=== PATIENT | male | born 1960 | race African-American/Black ===

== ENCOUNTER 2017-05-08 19:25 | Emergency (ER) | payer MEDICAID ==
[~2017-05-08] VITALS: Ht 165.1 cm; Wt 77.0 kg
[2017-05-09] MEDS ORDERED: IBUPROFEN 600MG TABLET PO NR (01:00)
[2017-05-09 01:13] LABS: CLARITY URINE CLEAR (CLEAR); COLOR URINE YELLOW (YELLOW); GLUCOSE URINE NEGATIVE (NEGATIVE); KETONES URINE TRACE (NEGATIVE); LEUKOCYTE ESTERASE URINE NEGATIVE (NEGATIVE); NITRITE URINE NEGATIVE (NEGATIVE); OCCULT BLOOD URINE NEGATIVE (NEGATIVE); PROTEIN URINE NEGATIVE (NEGATIVE)
[2017-05-09 05:45] VITALS: BP 137/90
== END 2017-05-09 05:48 | disposition home or self-care (01) ==
LOC: ER 05-09 02:22
DX: S39.012A Strain of muscle, fascia and tendon of lower back, initial encounter (principal); I10 Essential (primary) hypertension; E78.00 Pure hypercholesterolemia, unspecified; F17.200 Nicotine dependence, unspecified, uncomplicated; X58.XXXA Exposure to other specified factors, initial encounter; Y93.89 Activity, other specified; Y92.89 Other specified places as the place of occurrence of the external cause; Y99.8 Other external cause status
CPT/HCPCS: 72100; 81003; 99285; Z7610

== ENCOUNTER 2018-10-06 19:48 | Emergency (ER) | payer MEDICAID ==
[~2018-10-06] VITALS: Ht 165.1 cm; Wt 80.0 kg
[2018-10-06] MEDS: TRAMADOL 50MG TABLET PO ONE (23:13)
[2018-10-07 00:29] VITALS: BP 135/89
== END 2018-10-07 00:33 | disposition home or self-care (01) ==
LOC: ER 22:32
DX: M54.5 Low back pain (principal); F17.200 Nicotine dependence, unspecified, uncomplicated; F41.9 Anxiety disorder, unspecified; I10 Essential (primary) hypertension; E78.00 Pure hypercholesterolemia, unspecified; Z98.890 Other specified postprocedural states
CPT/HCPCS: 72100; 99283

== ENCOUNTER 2018-10-11 02:37 | Emergency (ER) | payer MEDICAID ==
[~2018-10-11] VITALS: Ht 165.1 cm; Wt 85.0 kg
[2018-10-11] MEDS ORDERED: IBUPROFEN 800MG TABLET PO ONE (06:45)
[2018-10-11] MEDS ORDERED: CLONIDINE 0.1MG TABLET PO ONE (06:45)
[2018-10-11 09:38] VITALS: BP 137/84
== END 2018-10-11 09:50 | disposition home or self-care (01) ==
LOC: ER 02:37
DX: M54.5 Low back pain (principal); I10 Essential (primary) hypertension; F12.10 Cannabis abuse, uncomplicated
CPT/HCPCS: 99283; Z7610

== ENCOUNTER 2018-10-26 01:21 | Emergency (ER) | payer MEDICAID ==
[~2018-10-26] VITALS: Ht 165.1 cm; Wt 83.0 kg
[2018-10-26] MEDS ORDERED: KETOROLAC 60MG/2ML VIAL IM ONE (07:15)
[2018-10-26 10:28] VITALS: BP 139/83
== END 2018-10-26 10:31 | disposition home or self-care (01) ==
LOC: ER 01:21
DX: J02.9 Acute pharyngitis, unspecified (principal); G89.29 Other chronic pain; M54.5 Low back pain
CPT/HCPCS: 87070; 87430; 96372; 99283; J1885

== ENCOUNTER 2020-09-14 01:13 | Emergency (ER) | payer MEDICAID ==
[~2020-09-14] VITALS: Ht 167.6 cm; Wt 86.0 kg
[2020-09-14] MEDS ORDERED: FUROSEMIDE 40MG TABLET PO ONE (02:15)
[2020-09-14 02:21] VITALS: BP 139/99
== END 2020-09-14 02:22 | disposition home or self-care (01) ==
LOC: ER 01:13
DX: I11.0 Hypertensive heart disease with heart failure (principal); I50.9 Heart failure, unspecified; F12.10 Cannabis abuse, uncomplicated; R60.0 Localized edema; Z76.0 Encounter for issue of repeat prescription
CPT/HCPCS: 99283

== ENCOUNTER 2020-11-23 23:09 | Emergency (ER) | payer MEDICAID ==
[~2020-11-23] VITALS: Ht 165.1 cm; Wt 77.0 kg
[2020-11-24] MEDS ORDERED: FUROSEMIDE 40MG/4ML VIAL IV ONE
[2020-11-24] MEDS ORDERED: ASPIRIN 81MG TABLET PO ONE
[2020-11-24 00:17] LABS: HEMATOCRIT. 45.3 % (42.0-52.0); HEMOGLOBIN. 14.1 g/dL (14.0-18.0); MEAN CORPUSCULAR HEMOGLOBIN 24.3 pg (28.0-32.0); MEAN PLATELET VOLUME 7.7 fl (7.4-10.4); PLATELET 174 x1000/uL (130-400); RED BLOOD CELL COUNT 5.81 mill/uL (4.7-6.1); RED CELL DISTRIBUTION WIDTH 16.3 % (11.6-14.6)
[2020-11-24 00:25] LABS: CHLORIDE 105 mEq/L (98-107)
[2020-11-24 01:08] LABS: PLATELET ESTIMATE NORMAL
[2020-11-24 01:24] VITALS: BP 123/79
[2020-11-24] MEDS ORDERED: FURO-151 MT (02:30)
== END 2020-11-24 04:00 | disposition home or self-care (01) ==
LOC: ER 23:15
DX: I11.0 Hypertensive heart disease with heart failure (principal); I50.9 Heart failure, unspecified; Z91.14 Patient's other noncompliance with medication regimen
CPT/HCPCS: 36415; 71045; 80053; 83880; 84484; 85025; 93005; 96374; 99285; J1940; Z7610

== ENCOUNTER 2023-02-04 16:39 | Inpatient (IN) | payer MEDICAID, OTHER ==
[~2023-02-04] VITALS: Ht 165.1 cm; Wt 71.3 kg
[~2023-02-04 16:39] MED LIST: ALBU18HF2 IH; CARV6.2548 MT; DOCU-138 MT; FLUT1DIS3 INH; FURO-151 MT; FURO40TA5 MT; HYDR-4001 MT; LOSA25TA26 MT; P20 PO
[2023-02-04 17:13] LABS: BASOPHILS % 1.3 % (0.0-2.0); EOSINOPHILS % 1.5 % (0.0-5.0); HEMATOCRIT. 38.5 % (42.0-52.0); HEMOGLOBIN. 11.9 g/dL (14.0-18.0); LYMPHOCYTES % 9.3 % (20.0-50.0); MEAN CORPUSCULAR HEMOGLOBIN 22.9 pg (28.0-32.0); MEAN CORPUSCULAR VOLUME 74.2 fL (80.0-94.0); MEAN PLATELET VOLUME 7.6 fl (7.4-10.4); MONOCYTES % 14.2 % (2.0-8.0); NEUTROPHILS % 73.7 % (40.0-76.0); PLATELET 211 x1000/uL (130-400); RED BLOOD CELL COUNT 5.19 mill/uL (4.7-6.1); RED CELL DISTRIBUTION WIDTH 19.2 % (11.6-14.6)
[2023-02-04 17:20] LABS: CHLORIDE 113 mEq/L (98-107)
[2023-02-04 17:22] LABS: INR 1.1; PROTHROMBIN TIME 11.6 sec (9.6-11.0)
[2023-02-05] MEDS ORDERED: ALBUTEROL (0.083%) 2.5MG/3ML NEB HHN ONE (00:15)
[2023-02-05] MEDS ORDERED: PREDNISONE 20MG TABLET PO ONE (00:15)
[2023-02-05] MEDS ORDERED: FUROSEMIDE 40MG/4ML VIAL IVP ONE (01:30)
[2023-02-05] MEDS ORDERED: PREDNISONE 20MG TABLET PO NR (06:00)
[2023-02-05] MEDS ORDERED: FUROSEMIDE 40MG/4ML VIAL IVP NR (06:00)
[2023-02-05 07:23] LABS: CLARITY URINE CLEAR (CLEAR); COLOR URINE YELLOW (YELLOW); KETONES URINE NEGATIVE (NEGATIVE); LEUKOCYTE ESTERASE URINE NEGATIVE (NEGATIVE); NITRITE URINE NEGATIVE (NEGATIVE); OCCULT BLOOD URINE NEGATIVE (NEGATIVE); PROTEIN URINE NEGATIVE (NEGATIVE); SPECIFIC GRAVITY URINE 1.013 (1.005-1.030); UROBILINOGEN URINE 0.2 E.U./dL (0.2-1.0)
[2023-02-05 08:00] VITALS: BP 132/100
[2023-02-05] MEDS ORDERED: ONDANSETRON HCL 4MG/2ML INJ IV PRN (10:45)
[2023-02-05] MEDS ORDERED: ACETAMINOPHEN 325MG TABLET PO PRN (10:45)
[2023-02-05] MEDS: FUROSEMIDE 40MG/4ML VIAL IVP SCH (11:30)
[2023-02-05 11:37] VITALS: BP 132/100
[2023-02-05 12:00] VITALS: BP 132/91
[2023-02-05 16:00] VITALS: BP 110/53
[2023-02-05] MEDS: IPRATROPIUM/ALBUTEROL 0.5-3(2.5)MG/3ML NEB HHN SCH ×2 (17:56→21:51)
[2023-02-05 20:00] VITALS: BP 105/69
[2023-02-06] VITALS: BP 113/75
[2023-02-06] MEDS: IPRATROPIUM/ALBUTEROL 0.5-3(2.5)MG/3ML NEB HHN SCH ×4 (01:17→12:51)
[2023-02-06 04:00] VITALS: BP 130/88
[2023-02-06 08:00] VITALS: BP 122/90
[2023-02-06] MEDS ORDERED: FURO40TA5 MT (08:48)
[2023-02-06] MEDS ORDERED: CARV6.2548 MT (08:48)
[2023-02-06] MEDS ORDERED: FLUT1DIS3 INH (08:48)
[2023-02-06] MEDS ORDERED: P20 PO (08:48)
[2023-02-06] MEDS ORDERED: ALBU18HF2 IH (08:48)
[2023-02-06] MEDS ORDERED: LOSA25TA26 MT (08:48)
[2023-02-06] MEDS ORDERED: PREDNISONE 20MG TABLET PO SCH (09:00)
[2023-02-06] MEDS: FUROSEMIDE 40MG/4ML VIAL IVP SCH (09:44)
[2023-02-06 12:00] VITALS: BP 119/97
[2023-02-06 15:06] VITALS: BP 119/97
== END 2023-02-06 15:05 | disposition home or self-care (01) | DRG 140 ==
LOC: ER 16:50 → 8WST 02-05 03:23 → EDBEDREQTM 02-05 03:53 → EDBEDREQ 02-05 03:53
PROVIDERS: ADMIT Internal Medicine; ATTEND Internal Medicine
DX: J44.1 Chronic obstructive pulmonary disease with (acute) exacerbation (principal); I50.23 Acute on chronic systolic (congestive) heart failure; E44.1 Mild protein-calorie malnutrition; I11.0 Hypertensive heart disease with heart failure; E78.00 Pure hypercholesterolemia, unspecified; K42.9 Umbilical hernia without obstruction or gangrene; F14.90 Cocaine use, unspecified, uncomplicated; F15.90 Other stimulant use, unspecified, uncomplicated; F17.210 Nicotine dependence, cigarettes, uncomplicated; Z91.199 Patient's noncompliance with other medical treatment and regimen due to unspecified reason; Z79.899 Other long term (current) drug therapy; Z68.26 Body mass index [BMI] 26.0-26.9, adult
CPT/HCPCS: 36415; 71045; 80053; 81003; 83880; 84484; 85025; 93005; 94640; 99285; J1940; J7512

== ENCOUNTER 2023-02-09 23:27 | Emergency (ER) | payer MEDICAID ==
[~2023-02-09] VITALS: Ht 165.1 cm; Wt 67.6 kg
[~2023-02-09 23:27] MED LIST changes: -FURO-151 MT
[2023-02-09 23:55] VITALS: BP 110/69
[2023-02-10 04:03] LABS: HEMATOCRIT. 40.8 % (42.0-52.0); MEAN CORPUSCULAR HEMOGLOBIN 23.4 pg (28.0-32.0); MEAN CORPUSCULAR VOLUME 73.6 fL (80.0-94.0); MEAN PLATELET VOLUME 8.8 fl (7.4-10.4); PLATELET 247 x1000/uL (130-400); RED BLOOD CELL COUNT 5.55 mill/uL (4.7-6.1); RED CELL DISTRIBUTION WIDTH 18.3 % (11.6-14.6)
[2023-02-10 04:13] LABS: CHLORIDE 108 mEq/L (98-107)
[2023-02-10 07:37] LABS: PLATELET ESTIMATE NORMAL
== END 2023-02-10 12:15 | disposition left against medical advice (07) ==
LOC: ER 23:27
DX: Z53.21 Procedure and treatment not carried out due to patient leaving prior to being seen by health care provider (principal)
CPT/HCPCS: 36415; 80053; 85025; 99281; 99283

== ENCOUNTER 2023-02-14 11:46 | Emergency (ER) | payer MEDICAID ==
[~2023-02-14] VITALS: Ht 165.1 cm; Wt 67.0 kg
[2023-02-14 11:57] VITALS: O2SAT 100
[2023-02-14 12:28] LABS: HEMATOCRIT. 38.7 % (42.0-52.0); HEMOGLOBIN. 12.3 g/dL (14.0-18.0); MEAN CORPUSCULAR HEMOGLOBIN 23.4 pg (28.0-32.0); MEAN CORPUSCULAR VOLUME 73.8 fL (80.0-94.0); MEAN PLATELET VOLUME 8.8 fl (7.4-10.4); PLATELET 219 x1000/uL (130-400); RED BLOOD CELL COUNT 5.24 mill/uL (4.7-6.1); RED CELL DISTRIBUTION WIDTH 18.8 % (11.6-14.6)
[2023-02-14 12:32] LABS: CLARITY URINE CLEAR (CLEAR); COLOR URINE YELLOW (YELLOW); KETONES URINE TRACE (NEGATIVE); LEUKOCYTE ESTERASE URINE 1+ (NEGATIVE); NITRITE URINE NEGATIVE (NEGATIVE); OCCULT BLOOD URINE NEGATIVE (NEGATIVE); PROTEIN URINE NEGATIVE (NEGATIVE); SPECIFIC GRAVITY URINE 1.028 (1.005-1.030)
[2023-02-14 12:38] LABS: CHLORIDE 112 mEq/L (98-107)
[2023-02-14 13:00] LABS: PLATELET ESTIMATE NORMAL
[2023-02-14] MEDS ORDERED: KETOROLAC 60MG/2ML VIAL IM ONE (14:30)
[2023-02-14] MEDS ORDERED: TOPUD MT (16:49)
[2023-02-14 17:22] VITALS: BP 100/60; PULSE 67; RESP 14; TEMP 98.1
== END 2023-02-14 17:26 | disposition home or self-care (01) ==
LOC: ER 11:49
DX: K42.9 Umbilical hernia without obstruction or gangrene (principal); F14.10 Cocaine abuse, uncomplicated; F15.10 Other stimulant abuse, uncomplicated; F12.10 Cannabis abuse, uncomplicated
CPT/HCPCS: 36415; 74176; 80053; 81003; 83690; 85025; 96372; 99285; J1885; Z7610

== ENCOUNTER 2023-06-13 10:12 | Inpatient (IN) | payer MEDICAID ==
[~2023-06-13] VITALS: Ht 170.2 cm; Wt 70.8 kg
[~2023-06-13 10:12] MED LIST changes: -CARV6.2548 MT; +COR6 PO; +LOSA-412 PO; -LOSA25TA26 MT; +MELO-106 PO; -P20 PO; +TAMS-11 PO
[2023-06-13] MEDS ORDERED: METHYLPREDNISOLONE SOD SUCC 125MG/2ML (ACT-O-VIAL) IV STA (10:24)
[2023-06-13] MEDS ORDERED: ALBUTEROL (0.083%) 2.5MG/3ML NEB HHN STA (10:24)
[2023-06-13] MEDS ORDERED: MAGNESIUM 2 G PREMIX 50 ML IV STA (10:24)
[2023-06-13] MEDS ORDERED: IPRATROPIUM BROMIDE (0.02%) 0.5MG/2.5ML NEB HHN STA (10:24)
[2023-06-13 10:59] LABS: HEMATOCRIT. 40.4 % (42.0-52.0); HEMOGLOBIN. 12.4 g/dL (14.0-18.0); MEAN CORPUSCULAR HEMOGLOBIN 22.4 pg (28.0-32.0); MEAN CORPUSCULAR HGB CONC 30.7 g/dL (31.0-37.0); MEAN PLATELET VOLUME 8.8 fl (7.4-10.4); PLATELET 193 x1000/uL (130-400); RED BLOOD CELL COUNT 5.53 mill/uL (4.7-6.1); RED CELL DISTRIBUTION WIDTH 22.1 % (11.6-14.6)
[2023-06-13 11:00] LABS: DIFFERENTIAL COMMENT 1
[2023-06-13 11:07] LABS: CHLORIDE 112 mEq/L (98-107); INDEX HEMOLYSI 1 (1-3); INDEX ICTERIC 1 (1-4); INDEX LIPEMIC 1 (1-3); POTASSIUM 4.7 mEq/L (3.5-5.1); SODIUM 140 mEq/L (136-145)
[2023-06-13 11:33] LABS: BG BASE EXCESS -5.4 mmol/L (-2.0-2.0); BG CARBOXYHEMOGLOBIN 1.5 % (0.5-1.5); BG DEOXYHEMOGLOBIN 7.1 % (0.0-5.0); BG FRACTION INSPIRED OXYGEN 21; BG HCO3 ACT 18.2 mmol/L (22.0-26.0); BG METHEMOGLOBIN 0.5 % (0.0-1.5); BG OXYGEN SATURATION 92.8 % (92.0-98.5); BG OXYHEMOGLOBIN 90.9 % (94.0-97.0); BG PCO2 30.1 mmHg (35.0-45.0); BG PO2 67.8 mmHg (75.0-100.0); BG SAMPLE SITE RIGHT BRACHIAL; BG TOTAL HEMOGLOBIN 13.1 g/dL (12.0-18.0); BG VENT MODE ROOM AIR
[2023-06-13 11:44] LABS: ALANINE AMINOTRANSFERASE 38 IU/L (13-61); ALBUMIN 3.3 g/dL (3.4-5.0); ASPARTATE AMINOTRANSFERASE 28 IU/L (15-37); BILIRUBIN TOTAL 1.5 mg/dL (0.1-1.0); CALCIUM 8.9 mg/dL (8.5-10.1); CARBON DIOXIDE 23 mEq/L (21-32); CREATININE 1.2 mg/dL (0.6-1.3); GLUCOSE 131 mg/dL (70-105); NT PRO B-TYPE NATRIURETIC PEP 3227 pg/mL (5-125); PROTEIN TOTAL 6.8 g/dL (6.0-8.3); TROPONIN I HIGH SENSITIVITY 28 ng/L (<78); UREA NITROGEN BLOOD 19 mg/dL (7-21)
[2023-06-13 11:49] LABS: ANISOCYTOSIS 2+; MICROCYTOSIS 2+; PLATELET ESTIMATE NORMAL; TARGET CELLS 2+
[2023-06-13 13:04] VITALS: PULSE 97; RESP 20; O2SAT 97
[2023-06-13] MEDS: PREDNISONE 20MG TABLET PO SCH (17:00)
[2023-06-13] MEDS ORDERED: IPRATROPIUM/ALBUTEROL 0.5-3(2.5)MG/3ML NEB HHN PRN (17:00)
[2023-06-13] MEDS: FUROSEMIDE 40MG/4ML VIAL IVP SCH (17:15)
[2023-06-13] MEDS ORDERED: HYDRALAZINE 20MG/ML VIAL IV NR (19:15)
[2023-06-13] MEDS: NICOTINE 14MG PATCH TD SCH (20:00)
[2023-06-13 20:08] LABS: *AMPHETAMINES SCREEN URINE PRESUMTIVE POSITIVE (NEGATIVE); *BARBITURATES SCREEN URINE NEGATIVE (NEGATIVE); *BENZODIAZEPINES SCREEN URINE NEGATIVE (NEGATIVE); *COCAINE SCREEN URINE NEGATIVE (NEGATIVE); CANNABINOID URINE SCREEN PRESUMTIVE POSITIVE (NEGATIVE); ECSTASY MDMA SCREEN URINE NEGATIVE (NEGATIVE); OPIATES URINE SCREEN NEGATIVE (NEGATIVE); PHENCYCLIDINE URINE SCREEN NEGATIVE (NEGATIVE)
[2023-06-13 22:38] VITALS: BP 140/92; PULSE 78; RESP 18; TEMP 97.9
[2023-06-13] MEDS ORDERED: ONDANSETRON HCL 4MG/2ML INJ IV PRN (23:45)
[2023-06-13] MEDS ORDERED: ACETAMINOPHEN 325MG TABLET PO PRN (23:45)
[2023-06-14] VITALS (10 sets, daily range): BP systolic 97–128; BP diastolic 45–94; PULSE 65–89; RESP 12–23; TEMP 97.8–98.6; O2SAT 96–99
[2023-06-14] MEDS: IPRATROPIUM/ALBUTEROL 0.5-3(2.5)MG/3ML NEB HHN SCH ×4 (01:00→21:04)
[2023-06-14] MEDS: NICOTINE 14MG PATCH TD SCH (08:15)
[2023-06-14] MEDS: FUROSEMIDE 40MG/4ML VIAL IVP SCH ×2 (08:15→19:15)
[2023-06-14] MEDS: PREDNISONE 20MG TABLET PO SCH (08:15)
[2023-06-14] MEDS: BUDESONIDE 0.5MG/2ML NEB HHN SCH ×2 (08:23→21:04)
[2023-06-14] MEDS: SPIRONOLACTONE 25MG TABLET PO SCH (16:10)
[2023-06-14] MEDS: LOSARTAN 25 MG TABLET PO SCH (16:10)
[2023-06-14 17:44] LABS: HEPATITIS B SURFACE ANTIGEN NEGATIVE
[2023-06-14 18:01] LABS: HEPATITIS C VIR.AB 0.13 INDEXVAL (0.00-0.80)
[2023-06-15] VITALS (9 sets, daily range): BP systolic 111–135; BP diastolic 70–93; PULSE 66–79; RESP 16–20; TEMP 98.1–98.7; O2SAT 97–100
[2023-06-15] MEDS: IPRATROPIUM/ALBUTEROL 0.5-3(2.5)MG/3ML NEB HHN SCH ×4 (01:35→20:31)
[2023-06-15] MEDS: BUDESONIDE 0.5MG/2ML NEB HHN SCH ×2 (09:13→20:30)
[2023-06-15] MEDS: FUROSEMIDE 40MG/4ML VIAL IVP SCH ×2 (09:30→17:25)
[2023-06-15] MEDS: LOSARTAN 25 MG TABLET PO SCH (09:30)
[2023-06-15] MEDS: NICOTINE 14MG PATCH TD SCH (09:30)
[2023-06-15] MEDS: SPIRONOLACTONE 25MG TABLET PO SCH (09:30)
[2023-06-15] MEDS: PREDNISONE 20MG TABLET PO SCH (09:30)
[2023-06-15] MEDS ORDERED: METOPROLOL TARTRATE 50MG TABLET PO NR (10:15)
[2023-06-15] MEDS ORDERED: VERAPAMIL HCL 2.5 MG/1 ML 2ML VIAL IV NR (10:15)
[2023-06-15] MEDS ORDERED: METOPROLOL SUCCINATE 50MG ER TABLET PO PRN (11:00)
[2023-06-15] MEDS ORDERED: IOHEXOL-350 100 ML BOTTLE ONE (13:01)
[2023-06-16] VITALS (9 sets, daily range): BP systolic 116–127; BP diastolic 75–95; PULSE 63–83; RESP 15–23; TEMP 97–98.2; O2SAT 96–98
[2023-06-16] MEDS: IPRATROPIUM/ALBUTEROL 0.5-3(2.5)MG/3ML NEB HHN SCH ×3 (02:26→14:12)
[2023-06-16] MEDS: BUDESONIDE 0.5MG/2ML NEB HHN SCH (07:54)
[2023-06-16] MEDS: PREDNISONE 20MG TABLET PO SCH (08:33)
[2023-06-16] MEDS: LOSARTAN 25 MG TABLET PO SCH (08:33)
[2023-06-16] MEDS: NICOTINE 14MG PATCH TD SCH (08:34)
[2023-06-16] MEDS: FUROSEMIDE 40MG/4ML VIAL IVP SCH ×2 (08:34→17:03)
[2023-06-16] MEDS: SPIRONOLACTONE 25MG TABLET PO SCH (08:34)
== END 2023-06-16 19:30 | disposition home or self-care (01) | DRG 140 ==
LOC: ER 10:53 → EDBEDREQ 13:23 → 3WST 21:58
PROVIDERS: ADMIT Internal Medicine; ATTEND Internal Medicine
DX: J44.1 Chronic obstructive pulmonary disease with (acute) exacerbation (principal); J96.01 Acute respiratory failure with hypoxia; I50.23 Acute on chronic systolic (congestive) heart failure; I27.20 Pulmonary hypertension, unspecified; I42.9 Cardiomyopathy, unspecified; I11.0 Hypertensive heart disease with heart failure; F12.10 Cannabis abuse, uncomplicated; I07.1 Rheumatic tricuspid insufficiency; F14.10 Cocaine abuse, uncomplicated; K42.9 Umbilical hernia without obstruction or gangrene; F17.210 Nicotine dependence, cigarettes, uncomplicated; Z79.899 Other long term (current) drug therapy; Z86.16 Personal history of COVID-19
CPT/HCPCS: 36415; 36600; 71045; 75571; 76705; 80053; 80061; 80305; 82375; 82805; 83880; 84484; 85025; 86803; 87340; 93005; 94640; 94644; 99285; J0360; J1940; J2930; J3475; J3490; J7512; J7626; Q9967

== ENCOUNTER 2023-07-03 11:19 | Emergency (ER) | payer MEDICAID ==
[~2023-07-03] VITALS: Ht 170.2 cm; Wt 64.0 kg
[2023-07-03 11:36] VITALS: BP 130/89; PULSE 92; RESP 18; TEMP 98.5; O2SAT 100
[2023-07-03] MEDS ORDERED: ALBU18HF2 IH (11:45)
[2023-07-03] MEDS ORDERED: FLUT1DIS3 INH (11:45)
[2023-07-03] MEDS ORDERED: COR6 PO (11:45)
[2023-07-03] MEDS ORDERED: LOSA-412 PO (11:45)
[2023-07-03] MEDS ORDERED: FURO40TA5 MT (11:45)
[2023-07-03] MEDS ORDERED: TAMS-11 PO (11:45)
== END 2023-07-03 14:59 | disposition home or self-care (01) ==
LOC: ER 11:19
DX: Z76.0 Encounter for issue of repeat prescription (principal)
CPT/HCPCS: 99281

== ENCOUNTER 2024-09-12 18:02 | Emergency (ER) | payer MEDICAID ==
[~2024-09-12] VITALS: Ht 167.6 cm; Wt 80.0 kg
[~2024-09-12 18:02] MED LIST changes: +ALBU90AE INH; +AMI2 PO; +APIX5TAB MT; +FURO-151 MT; +LOSA25TA26 PO; +P20 MT; +POTA-205 MT; +SPIR25TA6 MT
[2024-09-12 18:13] VITALS: O2SAT 100
[2024-09-12] MEDS ORDERED: PREDNISONE 20MG TABLET PO ONE (21:15)
[2024-09-12] MEDS ORDERED: IPRATROPIUM/ALBUTEROL 0.5-3(2.5)MG/3ML NEB HHN ONE (21:15)
[2024-09-12] MEDS ORDERED: FLUT1DIS3 INH (22:38)
[2024-09-12] MEDS ORDERED: FURO-151 MT (22:38)
[2024-09-12] MEDS ORDERED: P20 MT (22:38)
[2024-09-12] MEDS ORDERED: ALBU18HF2 IH (22:38)
[2024-09-13] MEDS: PREDNISONE 20MG TABLET PO NR (00:21)
[2024-09-13 00:31] VITALS: BP 137/67; PULSE 84; RESP 16; TEMP 36.89184; O2SAT 100
== END 2024-09-13 01:55 | disposition home or self-care (01) ==
LOC: ER 18:02
DX: J44.1 Chronic obstructive pulmonary disease with (acute) exacerbation (principal); I11.0 Hypertensive heart disease with heart failure; I50.9 Heart failure, unspecified; Z79.899 Other long term (current) drug therapy; Z79.52 Long term (current) use of systemic steroids; Z79.51 Long term (current) use of inhaled steroids
CPT/HCPCS: 99283; 71045; 93005; J7512

== ENCOUNTER 2025-05-12 10:13 | Inpatient (IN) | payer MEDICARE, MEDICAID ==
[~2025-05-12] VITALS: Ht 165.1 cm; Wt 66.7 kg
[~2025-05-12 10:13] MED LIST changes: -ALBU18HF2 IH; -AMI2 PO; +ASPI-1160 PO; -COR6 PO; -DOCU-138 MT; -FURO-151 MT; -HYDR-4001 MT; -LOSA25TA26 PO; -MELO-106 PO; -P20 MT; -POTA-205 MT; -TAMS-11 PO
[2025-05-12 11:22] LABS: HEMATOCRIT. 41.9 % (42.0-52.0); HEMOGLOBIN. 12.7 g/dL (14.0-18.0); MEAN PLATELET VOLUME 8.9 fl (7.4-10.4); PLATELET 169 x1000/uL (130-400); RED BLOOD CELL COUNT 5.75 mill/uL (4.7-6.1); RED CELL DISTRIBUTION WIDTH 21.2 % (11.6-14.6)
[2025-05-12 12:53] LABS: UREA NITROGEN BLOOD 37 mg/dL (9-23)
[2025-05-12 12:54] LABS: TROPONIN I HIGH SENSITIVITY 23 ng/L (3.0-53)
[2025-05-12 13:06] LABS: CREATININE 1.8 mg/dL (0.6-1.3)
[2025-05-12 15:35] LABS: HEMATOCRIT. 41.4 % (42.0-52.0); HEMOGLOBIN. 12.6 g/dL (14.0-18.0); MEAN PLATELET VOLUME 8.7 fl (7.4-10.4); PLATELET 190 x1000/uL (130-400); RED BLOOD CELL COUNT 5.85 mill/uL (4.7-6.1); RED CELL DISTRIBUTION WIDTH 19.8 % (11.6-14.6)
[2025-05-12 15:38] LABS: CREATININE 1.8 mg/dL (0.6-1.3); TROPONIN I HIGH SENSITIVITY 25 ng/L (3.0-53)
[2025-05-12 15:39] LABS: UREA NITROGEN BLOOD 35 mg/dL (9-23)
[2025-05-12 15:40] LABS: ASPARTATE AMINOTRANSFERASE 25 IU/L (<34); BILIRUBIN DIRECT 0.7 mg/dL (<=3.0)
[2025-05-12 15:41] LABS: BILIRUBIN TOTAL 1.3 mg/dL (0.1-1.0); PROTEIN TOTAL 6.0 g/dL (6.0-8.3)
[2025-05-12 16:30] VITALS: BP 136/84; PULSE 110; RESP 18; TEMP 36.7; O2SAT 94
[2025-05-12 16:38] LABS: BAND% 8.0 % (1.0-6.0); EOSINOPHILS % MANUAL 2.0 % (0.0-5.0); LYMPHOCYTES % MANUAL 19.0 % (20.0-50.0); METAMYELOCYTES % 1.0 % (0-0); MONOCYTES % MANUAL 6.0 % (2.0-8.0); MYELOCYTES % 1.0 % (0-0); NEUTROPHILS % MANUAL 63.0 % (45.0-75.0); NUCLEATED RED BLOOD CELLS 5 /100 WBC; PLATELET ESTIMATE NORMAL
[2025-05-12 17:00] VITALS: BP 136/84; PULSE 110; RESP 18; TEMP 36.7516
[2025-05-12 17:13] LABS: LYMPHOCYTES % MANUAL 29.0 % (20.0-50.0); MONOCYTES % MANUAL 10.0 % (2.0-8.0); NEUTROPHILS % MANUAL 61.0 % (45.0-75.0); PLATELET ESTIMATE NORMAL
[2025-05-12] MEDS: FUROSEMIDE 40MG/4ML VIAL IVP SCH (18:44)
[2025-05-12] MEDS: DILTIAZEM HCL 30MG TABLET PO NR (18:59)
[2025-05-12 20:00] VITALS: BP 117/89; PULSE 116; RESP 20; TEMP 36.5; O2SAT 99
[2025-05-12 20:44] LABS: *AMPHETAMINES SCREEN URINE NEGATIVE (NEGATIVE); *BARBITURATES SCREEN URINE NEGATIVE (NEGATIVE); *BENZODIAZEPINES SCREEN URINE NEGATIVE (NEGATIVE); *COCAINE SCREEN URINE PRESUMPTIVE POSITIVE (NEGATIVE); CANNABINOID URINE SCREEN NEGATIVE (NEGATIVE); ECSTASY MDMA SCREEN URINE NEGATIVE (NEGATIVE); METHADONE URINE SCREEN NEGATIVE (NEGATIVE); OPIATES URINE SCREEN NEGATIVE (NEGATIVE); PHENCYCLIDINE URINE SCREEN NEGATIVE (NEGATIVE)
[2025-05-12] MEDS: ENOXAPARIN 30MG/0.3ML SYR SUBCUT SCH (21:41)
[2025-05-13] VITALS (10 sets, daily range): BP systolic 94–113; BP diastolic 65–87; PULSE 54–125; RESP 16–20; TEMP 36.2–36.3; O2SAT 96–99
[2025-05-13] MEDS: DILTIAZEM HCL 30MG TABLET PO SCH (00:28)
[2025-05-13] MEDS: IPRATROPIUM/ALBUTEROL 0.5-3(2.5)MG/3ML NEB HHN SCH (02:12)
[2025-05-14] VITALS (50 sets, daily range): BP systolic 69–155; BP diastolic 33–137; PULSE 64–125; RESP 15–42; TEMP 32.1–36.8; O2SAT 85–100
[2025-05-14] MEDS: IPRATROPIUM BROMIDE (0.02%) 0.5MG/2.5ML NEB HHN SCH (09:00)
[2025-05-14] MEDS: CARVEDILOL 12.5MG TABLET PO SCH (09:22)
[2025-05-14] MEDS: AMIODARONE 200MG TABLET PO SCH (11:21)
[2025-05-14] MEDS: ENOXAPARIN 80MG/0.8ML SYR SUBCUT SCH (11:22)
[2025-05-14] MEDS: AMIODARONE 150MG/100ML D5W 100 ML IV SCH (12:20)
[2025-05-14 12:30] LABS: INR 1.2
[2025-05-14] MEDS ORDERED: SODIUM CHLORIDE 0.9% 10ML VIAL ONE (12:39)
[2025-05-14] MEDS ORDERED: ETOMIDATE 2MG/ML 10ML VIAL IV ONE (12:39)
[2025-05-14] MEDS ORDERED: ATROPINE SULFATE 1MG/10ML SYR ONE (12:39)
[2025-05-14] MEDS ORDERED: DEXTROSE 50% WATER 50ML SYRINGE IV ONE (12:39)
[2025-05-14] MEDS ORDERED: VECURONIUM BROMIDE 10 MG/VIAL IV ONE (12:39)
[2025-05-14 12:41] LABS: CREATININE 1.6 mg/dL (0.6-1.3); UREA NITROGEN BLOOD 25.0 mg/dL (9-23)
[2025-05-14 14:19] LABS: BG BASE EXCESS -7.1 mmol/L (-2.0-3.0); BG CARBOXYHEMOGLOBIN 1.6 % (0.5-1.5); BG DEOXYHEMOGLOBIN 2.7 % (0.0-5.0); BG FLOW(L/min) 10.00 L/min; BG FRACTION INSPIRED OXYGEN 60; BG HCO3 ACT 18.3 mmol/L (21.0-28.0); BG METHEMOGLOBIN 0.3 % (0.5-1.5); BG OXYGEN SATURATION 97.2 % (94.0-98.0); BG OXYHEMOGLOBIN 95.4 % (94.0-98.0); BG PCO2 36.4 mmHg (35.0-48.0); BG PH 7.319 (7.350-7.450); BG PO2 91.5 mmHg (83.0-108.0); BG SAMPLE SITE LEFT BRACHIAL; BG TOTAL HEMOGLOBIN 13.1 g/dL (13.5-17.5)
[2025-05-14] MEDS: METHYLPREDNISOLONE SOD SUCC 40MG/ML (ACT-O-VIAL) IV NR (14:55)
[2025-05-14] MEDS: LORAZEPAM 0.5MG TABLET PO PRN (16:27)
[2025-05-14] MEDS: FUROSEMIDE 40MG/4ML VIAL IVP SCH (17:15)
[2025-05-14] MEDS ORDERED: IPRATROPIUM/ALBUTEROL 0.5-3(2.5)MG/3ML NEB HHN PRN (18:00)
[2025-05-14 18:05] LABS: BG VENT MODE HHN TREATMENT
[2025-05-14] MEDS ORDERED: EPINEPHRINE 5 MG in SODIUM CHLORIDE 0.9% 245 ML IV PRN (18:15)
[2025-05-14] MEDS: TENECTEPLASE 50MG/VIAL (FOR MI OR PE) IV ONE (18:37)
[2025-05-14] MEDS: NOREPINEPHRINE 8MG/250ML PMX 250 ML IV PRN (18:38)
[2025-05-14 19:08] LABS: TROPONIN I HIGH SENSITIVITY 20 ng/L (3.0-53)
[2025-05-14 19:14] LABS: BG BASE EXCESS -8.3 mmol/L (-2.0-3.0); BG CARBOXYHEMOGLOBIN 1.0 % (0.5-1.5); BG DEOXYHEMOGLOBIN 0.3 % (0.0-5.0); BG FRACTION INSPIRED OXYGEN 100; BG HCO3 ACT 17.5 mmol/L (21.0-28.0); BG METHEMOGLOBIN 0.3 % (0.5-1.5); BG OXYGEN SATURATION 99.7 % (94.0-98.0); BG OXYHEMOGLOBIN 98.4 % (94.0-98.0); BG PCO2 37.4 mmHg (35.0-48.0); BG PEEP (cmH2O) 3.0 cmH2O; BG PH 7.289 (7.350-7.450); BG PO2 427.2 mmHg (83.0-108.0); BG SAMPLE SITE LEFT BRACHIAL; BG TIDAL VOLUME(mL) 450.0 mL; BG TOTAL HEMOGLOBIN 13.5 g/dL (13.5-17.5); BG TOTAL RESPIRATORY RATE 16 b/min; BG VENT MODE VENT - AC; BG VENT RATE 16.0 set
[2025-05-14] MEDS: METRONIDAZOLE 500 MG PREMIX 100 ML IV SCH (21:15)
[2025-05-14] MEDS: CEFEPIME 2GM PREMIX 100ML IV SCH (21:34)
[2025-05-14] MEDS ORDERED: CEFEPIME 1GM IN DEXT 5% 50ML IV SCH (22:00)
[2025-05-14 22:17] LABS: PLATELET 174 x1000/uL (130-400); RED BLOOD CELL COUNT 5.81 mill/uL (4.7-6.1); RED CELL DISTRIBUTION WIDTH 19.8 % (11.6-14.6)
[2025-05-14 22:38] LABS: CREATININE 1.9 mg/dL (0.6-1.3)
[2025-05-14 22:39] LABS: UREA NITROGEN BLOOD 30.0 mg/dL (9-23)
[2025-05-14] MEDS: DEXTROSE 50% WATER 50ML SYRINGE IV NR (23:39)
[2025-05-14] MEDS: CALCIUM GLUCONATE 1GM PREMIX 50 ML IV NR (23:50)
[2025-05-14] MEDS: DEXTROSE 50% WATER 50ML SYRINGE IV PRN (23:51)
[2025-05-14] MEDS: INSULIN REGULAR (HUMULIN R) 1000UNITS/10ML VIAL IV NR (23:53)
[2025-05-14] MEDS: SODIUM ZIRCONIUM CYCLOSILICATE 10GM/PACKET PO NR (23:53)
[2025-05-15] VITALS (128 sets, daily range): BP systolic 11–161; BP diastolic 30–138; PULSE 48–114; RESP 11–34; TEMP 33.9–37.3; O2SAT 89–100
[2025-05-15 00:09] LABS: BG BASE EXCESS -8.4 mmol/L (-2.0-3.0); BG CARBOXYHEMOGLOBIN 1.7 % (0.5-1.5); BG DEOXYHEMOGLOBIN 0.9 % (0.0-5.0); BG FRACTION INSPIRED OXYGEN 60; BG HCO3 ACT 18.5 mmol/L (21.0-28.0); BG METHEMOGLOBIN 0.4 % (0.5-1.5); BG OXYGEN SATURATION 99.1 % (94.0-98.0); BG OXYHEMOGLOBIN 97.0 % (94.0-98.0); BG PCO2 43.3 mmHg (35.0-48.0); BG PEEP (cmH2O) 3.0 cmH2O; BG PH 7.248 (7.350-7.450); BG PO2 131.5 mmHg (83.0-108.0); BG TIDAL VOLUME(mL) 450.0 mL; BG TOTAL HEMOGLOBIN 13.0 g/dL (13.5-17.5); BG TOTAL RESPIRATORY RATE 18 b/min; BG VENT MODE VENT - AC; BG VENT RATE 16.0 set
[2025-05-15] MEDS: DEXMEDETOMIDINE 250 ML IV PRN (01:02)
[2025-05-15] MEDS: FENTANYL 2500MCG/250ML PMX 250 ML IV PRN (01:08)
[2025-05-15 03:18] LABS: PLATELET 166 x1000/uL (130-400); RED BLOOD CELL COUNT 5.79 mill/uL (4.7-6.1); RED CELL DISTRIBUTION WIDTH 20.2 % (11.6-14.6)
[2025-05-15 03:38] LABS: PHOSPHORUS 5.7 mg/dL (2.5-4.9)
[2025-05-15] MEDS: BUMETANIDE 1MG/4ML VIAL IV NR (03:53)
[2025-05-15] MEDS: DEXTROSE 50% WATER 50ML SYRINGE IV NR (03:53)
[2025-05-15] MEDS: INSULIN REGULAR (HUMULIN R) 1000UNITS/10ML VIAL IV NR (03:57)
[2025-05-15] MEDS: CALCIUM GLUCONATE 1GM PREMIX 50 ML IV NR (04:06)
[2025-05-15] MEDS: SODIUM ZIRCONIUM CYCLOSILICATE 10GM/PACKET PO NR (04:07)
[2025-05-15 07:15] LABS: BASOPHILS % 0.1 % (0.0-2.0); EOSINOPHILS % 0.0 % (0.0-5.0); HEMATOCRIT. 38.0 % (42.0-52.0); HEMOGLOBIN. 11.7 g/dL (14.0-18.0); LYMPHOCYTES % 7.9 % (20.0-50.0); MEAN PLATELET VOLUME 8.8 fl (7.4-10.4); MONOCYTES % 7.5 % (2.0-8.0); NEUTROPHILS % 84.5 % (40.0-76.0); PLATELET 159 x1000/uL (130-400); RED BLOOD CELL COUNT 5.29 mill/uL (4.7-6.1); RED CELL DISTRIBUTION WIDTH 19.3 % (11.6-14.6)
[2025-05-15] MEDS ORDERED: DOPAMINE 400MG/250ML PREMIX 250 ML IV PRN (07:15)
[2025-05-15 07:49] LABS: CREATININE 2.4 mg/dL (0.6-1.3); UREA NITROGEN BLOOD 39 mg/dL (9-23)
[2025-05-15 07:51] LABS: ASPARTATE AMINOTRANSFERASE 113 IU/L (<34); BILIRUBIN TOTAL 1.8 mg/dL (0.1-1.0); PROTEIN TOTAL 5.4 g/dL (6.0-8.3)
[2025-05-15] MEDS: IPRATROPIUM/ALBUTEROL 0.5-3(2.5)MG/3ML NEB HHN SCH (08:35)
[2025-05-15 09:16] LABS: BG BASE EXCESS -8.1 mmol/L (-2.0-3.0); BG CARBOXYHEMOGLOBIN 1.3 % (0.5-1.5); BG DEOXYHEMOGLOBIN 0.1 % (0.0-5.0); BG FRACTION INSPIRED OXYGEN 50; BG HCO3 ACT 16.8 mmol/L (21.0-28.0); BG METHEMOGLOBIN 0.2 % (0.5-1.5); BG OXYGEN SATURATION 99.9 % (94.0-98.0); BG OXYHEMOGLOBIN 98.4 % (94.0-98.0); BG PCO2 32.7 mmHg (35.0-48.0); BG PEEP (cmH2O) 3.0 cmH2O; BG PH 7.329 (7.350-7.450); BG PO2 157.0 mmHg (83.0-108.0); BG SAMPLE SITE LEFT BRACHIAL; BG TIDAL VOLUME(mL) 450.0 mL; BG TOTAL HEMOGLOBIN 12.9 g/dL (13.5-17.5); BG TOTAL RESPIRATORY RATE 32 b/min; BG VENT MODE VENT - AC; BG VENT RATE 20.0 set
[2025-05-15] MEDS: BLOOD SUGAR DIAGNOSTIC STRIP TEST SCH (09:20)
[2025-05-15] MEDS: PANTOPRAZOLE SODIUM 40 MG/VIAL IV SCH (09:22)
[2025-05-15 09:45] LABS: HEPATITIS A AB IGM NEGATIVE (Negative)
[2025-05-15 09:46] LABS: HEPATITIS B CORE AB IGM NEGATIVE (Negative); HEPATITIS C AB NON REACTIVE (Neg) (Negative)
[2025-05-15] MEDS ORDERED: LIDOCAINE HCL 1% 10 MG/ML 10ML VIAL ONE (11:09)
[2025-05-15 13:32] LABS: INR 1.5
[2025-05-15 18:01] LABS: CREATININE 1.8 mg/dL (0.6-1.3); UREA NITROGEN BLOOD 25 mg/dL (9-23)
[2025-05-15 18:03] LABS: PHOSPHORUS 4.4 mg/dL (2.5-4.9)
[2025-05-15] MEDS: PROPOFOL 10MG/ML 100ML 100 ML IV PRN (18:04)
[2025-05-15] MEDS: ENOXAPARIN 80MG/0.8ML SYR SUBCUT SCH (21:10)
[2025-05-16] VITALS (110 sets, daily range): BP systolic 79–161; BP diastolic 61–143; PULSE 54–128; RESP 0–35; TEMP 36.4–37.1; O2SAT 81–100
[2025-05-16 05:31] LABS: CREATININE 2.0 mg/dL (0.6-1.3); TRIGLYCERIDE 52.0 mg/dL (0-150); UREA NITROGEN BLOOD 35.0 mg/dL (9-23)
[2025-05-16 05:38] LABS: BASOPHILS % 0.0 % (0.0-2.0); EOSINOPHILS % 0.0 % (0.0-5.0); HEMATOCRIT. 35.3 % (42.0-52.0); HEMOGLOBIN. 10.8 g/dL (14.0-18.0); LYMPHOCYTES % 8.3 % (20.0-50.0); MEAN PLATELET VOLUME 8.9 fl (7.4-10.4); MONOCYTES % 10.1 % (2.0-8.0); NEUTROPHILS % 81.6 % (40.0-76.0); PLATELET 157 x1000/uL (130-400); RED BLOOD CELL COUNT 4.98 mill/uL (4.7-6.1); RED CELL DISTRIBUTION WIDTH 19.3 % (11.6-14.6)
[2025-05-16] MEDS: METHYLPREDNISOLONE SOD SUCC 40MG/ML (ACT-O-VIAL) IV SCH (20:23)
[2025-05-16 21:07] LABS: BG BASE EXCESS -0.6 mmol/L (-2.0-3.0); BG CARBOXYHEMOGLOBIN 2.1 % (0.5-1.5); BG DEOXYHEMOGLOBIN 4.5 % (0.0-5.0); BG FLOW(L/min) 3.00 L/min; BG HCO3 ACT 23.6 mmol/L (21.0-28.0); BG METHEMOGLOBIN 0.4 % (0.5-1.5); BG OXYGEN SATURATION 95.4 % (94.0-98.0); BG OXYHEMOGLOBIN 93.0 % (94.0-98.0); BG PCO2 37.7 mmHg (35.0-48.0); BG PH 7.415 (7.350-7.450); BG PO2 76.5 mmHg (83.0-108.0); BG SAMPLE SITE RIGHT RADIAL; BG TOTAL HEMOGLOBIN 12.5 g/dL (13.5-17.5); BG VENT MODE NASAL CANNULA
[2025-05-16] MEDS: ONDANSETRON HCL 4MG/2ML INJ IV PRN (21:57)
[2025-05-17] VITALS (97 sets, daily range): BP systolic 74–123; BP diastolic 47–97; PULSE 72–112; RESP 10–36; TEMP 36.4–36.7; O2SAT 74–100
[2025-05-17 06:00] LABS: HEMATOCRIT. 37.9 % (42.0-52.0); HEMOGLOBIN. 11.5 g/dL (14.0-18.0); MEAN PLATELET VOLUME 9.1 fl (7.4-10.4); PLATELET 151 x1000/uL (130-400); RED BLOOD CELL COUNT 5.29 mill/uL (4.7-6.1); RED CELL DISTRIBUTION WIDTH 20.1 % (11.6-14.6)
[2025-05-17 06:12] LABS: CREATININE 2.5 mg/dL (0.6-1.3); UREA NITROGEN BLOOD 44.0 mg/dL (9-23)
[2025-05-17] MEDS ORDERED: CEFTRIAXONE 1GM/50ML 50 ML IV SCH (08:45)
[2025-05-17 09:01] LABS: BG BASE EXCESS -4.2 mmol/L (-2.0-3.0); BG CARBOXYHEMOGLOBIN 1.6 % (0.5-1.5); BG DEOXYHEMOGLOBIN 1.0 % (0.0-5.0); BG FLOW(L/min) 4.00 L/min; BG FRACTION INSPIRED OXYGEN 36; BG HCO3 ACT 21.0 mmol/L (21.0-28.0); BG METHEMOGLOBIN 0.2 % (0.5-1.5); BG OXYGEN SATURATION 99.0 % (94.0-98.0); BG OXYHEMOGLOBIN 97.2 % (94.0-98.0); BG PCO2 39.1 mmHg (35.0-48.0); BG PH 7.348 (7.350-7.450); BG PO2 111.6 mmHg (83.0-108.0); BG SAMPLE SITE RIGHT RADIAL; BG TOTAL HEMOGLOBIN 12.9 g/dL (13.5-17.5); BG VENT MODE NASAL CANNULA
[2025-05-17] MEDS: MIDODRINE HCL 5MG TABLET PO SCH (09:13)
[2025-05-17 11:53] LABS: BG BASE EXCESS -1.7 mmol/L (-2.0-3.0); BG CARBOXYHEMOGLOBIN 2.0 % (0.5-1.5); BG DEOXYHEMOGLOBIN 5.4 % (0.0-5.0); BG FRACTION INSPIRED OXYGEN 21; BG HCO3 ACT 21.9 mmol/L (21.0-28.0); BG METHEMOGLOBIN 0.3 % (0.5-1.5); BG OXYGEN SATURATION 94.5 % (94.0-98.0); BG OXYHEMOGLOBIN 92.3 % (94.0-98.0); BG PCO2 33.5 mmHg (35.0-48.0); BG PH 7.433 (7.350-7.450); BG PO2 69.2 mmHg (83.0-108.0); BG SAMPLE SITE RIGHT BRACHIAL; BG TOTAL HEMOGLOBIN 12.7 g/dL (13.5-17.5); BG VENT MODE ROOM AIR
[2025-05-17 14:18] LABS: LYMPHOCYTES % MANUAL 6.0 % (20.0-50.0); MONOCYTES % MANUAL 3.0 % (2.0-8.0); NEUTROPHILS % MANUAL 91.0 % (45.0-75.0); NUCLEATED RED BLOOD CELLS 2 /100 WBC; PLATELET ESTIMATE NORMAL
[2025-05-18] VITALS (70 sets, daily range): BP systolic 83–123; BP diastolic 32–105; PULSE 77–106; RESP 0–31; TEMP 36.3–36.7; O2SAT 90–100
[2025-05-18 06:41] LABS: BASOPHILS % 0.2 % (0.0-2.0); EOSINOPHILS % 0.0 % (0.0-5.0); HEMATOCRIT. 38.9 % (42.0-52.0); HEMOGLOBIN. 11.8 g/dL (14.0-18.0); LYMPHOCYTES % 8.2 % (20.0-50.0); MEAN PLATELET VOLUME 9.3 fl (7.4-10.4); MONOCYTES % 7.5 % (2.0-8.0); NEUTROPHILS % 84.1 % (40.0-76.0); PLATELET 160 x1000/uL (130-400); RED BLOOD CELL COUNT 5.37 mill/uL (4.7-6.1); RED CELL DISTRIBUTION WIDTH 20.0 % (11.6-14.6)
[2025-05-18 06:53] LABS: CREATININE 2.7 mg/dL (0.6-1.3)
[2025-05-18 06:58] LABS: UREA NITROGEN BLOOD 55.0 mg/dL (9-23)
[2025-05-18] MEDS: METHYLPREDNISOLONE SOD SUCC 40MG/ML (ACT-O-VIAL) IV SCH (09:28)
[2025-05-18] MEDS: AMIODARONE 200MG TABLET PO SCH (14:55)
[2025-05-18 16:32] LABS: BG BASE EXCESS -8.4 mmol/L (-2.0-3.0); BG CARBOXYHEMOGLOBIN 1.7 % (0.5-1.5); BG DEOXYHEMOGLOBIN 5.8 % (0.0-5.0); BG FLOW(L/min) 3.00 L/min; BG FRACTION INSPIRED OXYGEN 32; BG HCO3 ACT 16.2 mmol/L (21.0-28.0); BG METHEMOGLOBIN 0.4 % (0.5-1.5); BG OXYGEN SATURATION 94.1 % (94.0-98.0); BG OXYHEMOGLOBIN 92.1 % (94.0-98.0); BG PCO2 31.0 mmHg (35.0-48.0); BG PH 7.335 (7.350-7.450); BG PO2 74.0 mmHg (83.0-108.0); BG SAMPLE SITE RIGHT RADIAL; BG TOTAL HEMOGLOBIN 13.2 g/dL (13.5-17.5); BG VENT MODE NASAL CANNULA
[2025-05-19] VITALS (74 sets, daily range): BP systolic 96–124; BP diastolic 75–100; PULSE 77–108; RESP 12–36; TEMP 36.2–37.8; O2SAT 91–100
[2025-05-19 07:18] LABS: HEMATOCRIT. 37.4 % (42.0-52.0); HEMOGLOBIN. 11.5 g/dL (14.0-18.0); MEAN PLATELET VOLUME 9.3 fl (7.4-10.4); PLATELET 149 x1000/uL (130-400); RED BLOOD CELL COUNT 5.25 mill/uL (4.7-6.1); RED CELL DISTRIBUTION WIDTH 20.0 % (11.6-14.6)
[2025-05-19 07:33] LABS: UREA NITROGEN BLOOD 72.0 mg/dL (9-23)
[2025-05-19 07:49] LABS: CREATININE 3.6 mg/dL (0.6-1.3)
[2025-05-19] MEDS: CEFEPIME 2GM PREMIX 100ML IV SCH (10:08)
[2025-05-19] MEDS: ACETAMINOPHEN 325MG TABLET PO PRN (10:09)
[2025-05-19] MEDS: AMIODARONE 200MG TABLET PO SCH (10:09)
[2025-05-19 11:10] LABS: BAND% 20.0 % (1.0-6.0); LYMPHOCYTES % MANUAL 9.0 % (20.0-50.0); MONOCYTES % MANUAL 11.0 % (2.0-8.0); NEUTROPHILS % MANUAL 60.0 % (45.0-75.0); NUCLEATED RED BLOOD CELLS 9 /100 WBC
[2025-05-19 11:11] LABS: PLATELET ESTIMATE NORMAL
[2025-05-20] VITALS (37 sets, daily range): BP systolic 100–148; BP diastolic 69–127; PULSE 93–139; RESP 15–41; TEMP 36.1–36.5; O2SAT 95–100
[2025-05-20 06:36] LABS: CREATININE 3.0 mg/dL (0.6-1.3); UREA NITROGEN BLOOD 49.0 mg/dL (9-23)
[2025-05-20 06:41] LABS: PLATELET 144 x1000/uL (130-400); RED BLOOD CELL COUNT 5.59 mill/uL (4.7-6.1); RED CELL DISTRIBUTION WIDTH 20.2 % (11.6-14.6)
[2025-05-20] MEDS: ENOXAPARIN 80MG/0.8ML SYR SUBCUT SCH (09:07)
[2025-05-20 17:18] LABS: BG BASE EXCESS -6.7 mmol/L (-2.0-3.0); BG CARBOXYHEMOGLOBIN 1.9 % (0.5-1.5); BG DEOXYHEMOGLOBIN 5.8 % (0.0-5.0); BG FLOW(L/min) 4.00 L/min; BG FRACTION INSPIRED OXYGEN 36; BG HCO3 ACT 17.9 mmol/L (21.0-28.0); BG METHEMOGLOBIN 0.3 % (0.5-1.5); BG OXYGEN SATURATION 94.1 % (94.0-98.0); BG OXYHEMOGLOBIN 92.0 % (94.0-98.0); BG PCO2 33.4 mmHg (35.0-48.0); BG PH 7.348 (7.350-7.450); BG PO2 72.7 mmHg (83.0-108.0); BG SAMPLE SITE RIGHT BRACHIAL; BG TOTAL HEMOGLOBIN 13.1 g/dL (13.5-17.5); BG VENT MODE NASAL CANNULA
[2025-05-20] MEDS ORDERED: AMIODARONE 360MG/200ML 200 ML IV SCH (23:15)
[2025-05-21] VITALS (15 sets, daily range): BP systolic 104–120; BP diastolic 79–107; PULSE 84–115; RESP 13–41; TEMP 35.9–37.1; O2SAT 90–100
[2025-05-21] MEDS: AMIODARONE HCL 900 MG in DEXT 5% WATER 500 ML IV SCH ×2 (00:38→06:41)
[2025-05-21] MEDS ORDERED: AMIODARONE 360MG/200ML 200 ML IV SCH (06:00)
[2025-05-21] MEDS: DEXT 5%/0.9% NACL 1,000 ML IV SCH (10:00)
[2025-05-21 12:41] LABS: HEMATOCRIT. 41.1 % (42.0-52.0); HEMOGLOBIN. 12.1 g/dL (14.0-18.0); MEAN PLATELET VOLUME 10.0 fl (7.4-10.4); PLATELET 119 x1000/uL (130-400); RED BLOOD CELL COUNT 5.52 mill/uL (4.7-6.1); RED CELL DISTRIBUTION WIDTH 20.4 % (11.6-14.6)
[2025-05-21 12:55] LABS: UREA NITROGEN BLOOD 58.0 mg/dL (9-23)
[2025-05-21] MEDS ORDERED: IPRATROPIUM/ALBUTEROL 0.5-3(2.5)MG/3ML NEB HHN PRN (13:15)
[2025-05-21 13:17] LABS: CREATININE 4.1 mg/dL (0.6-1.3)
[2025-05-21 13:35] LABS: BG BASE EXCESS -9.6 mmol/L (-2.0-3.0); BG CARBOXYHEMOGLOBIN 2.0 % (0.5-1.5); BG DEOXYHEMOGLOBIN 0.1 % (0.0-5.0); BG FRACTION INSPIRED OXYGEN 40; BG HCO3 ACT 13.9 mmol/L (21.0-28.0); BG METHEMOGLOBIN 0.4 % (0.5-1.5); BG OXYGEN SATURATION 99.9 % (94.0-98.0); BG OXYHEMOGLOBIN 97.5 % (94.0-98.0); BG PCO2 24.8 mmHg (35.0-48.0); BG PH 7.367 (7.350-7.450); BG PO2 165.1 mmHg (83.0-108.0); BG SAMPLE SITE RIGHT BRACHIAL; BG TOTAL HEMOGLOBIN 12.7 g/dL (13.5-17.5); BG VENT MODE MASK - BIPAP; BG VENT RATE 18.0 set
[2025-05-21 14:30] LABS: BAND% 2.0 % (1.0-6.0); LYMPHOCYTES % MANUAL 13.0 % (20.0-50.0); MONOCYTES % MANUAL 15.0 % (2.0-8.0); NEUTROPHILS % MANUAL 70.0 % (45.0-75.0); NUCLEATED RED BLOOD CELLS 53 /100 WBC
[2025-05-21 14:31] LABS: PLATELET ESTIMATE DECREASED
[2025-05-21] MEDS: IPRATROPIUM/ALBUTEROL 0.5-3(2.5)MG/3ML NEB HHN SCH (15:20)
[2025-05-22] VITALS (20 sets, daily range): BP systolic 97–141; BP diastolic 74–101; PULSE 78–100; RESP 16–39; TEMP 36.2–37.1; O2SAT 90–100
[2025-05-22 12:53] LABS: HEMATOCRIT. 42.1 % (42.0-52.0); HEMOGLOBIN. 12.6 g/dL (14.0-18.0); RED BLOOD CELL COUNT 5.73 mill/uL (4.7-6.1); RED CELL DISTRIBUTION WIDTH 20.4 % (11.6-14.6)
[2025-05-22 13:08] LABS: CREATININE 4.7 mg/dL (0.6-1.3); UREA NITROGEN BLOOD 59.0 mg/dL (9-23)
[2025-05-22 14:41] LABS: BAND% 6.0 % (1.0-6.0); LYMPHOCYTES % MANUAL 8.0 % (20.0-50.0); MONOCYTES % MANUAL 13.0 % (2.0-8.0); NEUTROPHILS % MANUAL 73.0 % (45.0-75.0); NUCLEATED RED BLOOD CELLS 41 /100 WBC; PLATELET ESTIMATE DECREASED
[2025-05-22 14:42] LABS: PLATELET 90 x1000/uL (130-400)
[2025-05-22] MEDS: INSULIN REGULAR (HUMULIN R) 1000UNITS/10ML VIAL IV NR (16:35)
[2025-05-22] MEDS: SODIUM ZIRCONIUM CYCLOSILICATE 10GM/PACKET PO NR (16:37)
[2025-05-22] MEDS: SODIUM BICARBONATE 8.4% 50MEQ/50ML SYR IV NR (16:38)
[2025-05-22] MEDS: DEXTROSE 50% WATER 50ML SYRINGE IV NR (16:43)
[2025-05-22] MEDS: CALCIUM GLUCONATE 1GM PREMIX 50 ML IV NR (17:00)
[2025-05-23] VITALS (19 sets, daily range): BP systolic 94–132; BP diastolic 21–102; PULSE 86–99; RESP 11–43; TEMP 36.2–37; O2SAT 85–98
[2025-05-23 06:11] LABS: HEMATOCRIT. 37.8 % (42.0-52.0); HEMOGLOBIN. 11.6 g/dL (14.0-18.0); RED BLOOD CELL COUNT 5.28 mill/uL (4.7-6.1); RED CELL DISTRIBUTION WIDTH 20.8 % (11.6-14.6)
[2025-05-23 06:22] LABS: UREA NITROGEN BLOOD 48.0 mg/dL (9-23)
[2025-05-23 06:46] LABS: CREATININE 3.2 mg/dL (0.6-1.3)
[2025-05-23 08:03] LABS: MEAN PLATELET VOLUME 10.5 fl (7.4-10.4); PLATELET 76 x1000/uL (130-400)
[2025-05-23 11:52] LABS: BAND% 5.0 % (1.0-6.0); LYMPHOCYTES % MANUAL 5.0 % (20.0-50.0); MONOCYTES % MANUAL 2.0 % (2.0-8.0); NEUTROPHILS % MANUAL 88.0 % (45.0-75.0); NUCLEATED RED BLOOD CELLS 159 /100 WBC; PLATELET ESTIMATE DECREASED
[2025-05-23] MEDS: CEFTRIAXONE 1GM/50ML 50 ML IV SCH (12:28)
[2025-05-23] MEDS ORDERED: CEFEPIME 1GM IN DEXT 5% 50ML IV SCH (12:45)
[2025-05-23] MEDS: DOXYCYCLINE HYCLATE 100MG CAPSULE PO SCH (13:54)
[2025-05-23] MEDS: CEFEPIME 1GM PREMIX 50ML IV SCH (14:28)
[2025-05-23] MEDS: VANCOMYCIN 1.5GM/250ML IV SCH (14:35)
[2025-05-24] VITALS (22 sets, daily range): BP systolic 77–109; BP diastolic 45–97; PULSE 72–94; RESP 12–30; TEMP 36.2–36.6; O2SAT 94–100
[2025-05-24 08:12] LABS: HEMATOCRIT. 35.9 % (42.0-52.0); HEMOGLOBIN. 10.9 g/dL (14.0-18.0); RED BLOOD CELL COUNT 5.02 mill/uL (4.7-6.1); RED CELL DISTRIBUTION WIDTH 20.3 % (11.6-14.6)
[2025-05-24 08:19] LABS: CREATININE 3.5 mg/dL (0.6-1.3)
[2025-05-24 08:20] LABS: UREA NITROGEN BLOOD 57.0 mg/dL (9-23)
[2025-05-24 09:17] LABS: MEAN PLATELET VOLUME 11.0 fl (7.4-10.4); PLATELET 41 x1000/uL (130-400)
[2025-05-24 11:34] LABS: BAND% 14.0 % (1.0-6.0); LYMPHOCYTES % MANUAL 13.0 % (20.0-50.0); MONOCYTES % MANUAL 5.0 % (2.0-8.0); NEUTROPHILS % MANUAL 68.0 % (45.0-75.0); NUCLEATED RED BLOOD CELLS 128 /100 WBC; PLATELET ESTIMATE MARKEDLY DECREASED
[2025-05-25] VITALS (28 sets, daily range): BP systolic 95–124; BP diastolic 70–98; PULSE 73–102; RESP 12–40; TEMP 36.33624–36.6696; O2SAT 96–100
[2025-05-25 07:06] LABS: HEMATOCRIT. 36.9 % (42.0-52.0); HEMOGLOBIN. 11.2 g/dL (14.0-18.0); MEAN PLATELET VOLUME 9.7 fl (7.4-10.4); RED BLOOD CELL COUNT 5.09 mill/uL (4.7-6.1); RED CELL DISTRIBUTION WIDTH 20.1 % (11.6-14.6)
[2025-05-25 07:13] LABS: CREATININE 2.7 mg/dL (0.6-1.3)
[2025-05-25 07:14] LABS: UREA NITROGEN BLOOD 38.0 mg/dL (9-23)
[2025-05-25 07:39] LABS: PLATELET 44 x1000/uL (130-400)
[2025-05-25 12:10] LABS: BAND% 5.0 % (1.0-6.0); EOSINOPHILS % MANUAL 2.0 % (0.0-5.0); LYMPHOCYTES % MANUAL 9.0 % (20.0-50.0); NEUTROPHILS % MANUAL 84.0 % (45.0-75.0); NUCLEATED RED BLOOD CELLS 35 /100 WBC; PLATELET ESTIMATE MARKEDLY DECREASED
[2025-05-25] MEDS: VANCOMYCIN 750MG/150ML (BAXTER) IV SCH (13:00)
[2025-05-25] MEDS: MORPHINE SULFATE 4 MG/ML INJ (FOR IV/IM USE) IV NR (22:15)
[2025-05-25] MEDS: METOPROLOL TARTRATE 25MG TABLET PO NR (22:15)
[2025-05-26] VITALS (29 sets, daily range): BP systolic 96–121; BP diastolic 67–99; PULSE 82–104; RESP 14–38; TEMP 36.4–36.6; O2SAT 60–100
[2025-05-26 00:58] LABS: TROPONIN I HIGH SENSITIVITY 51 ng/L (3.0-53)
[2025-05-26 06:25] LABS: CREATININE 3.0 mg/dL (0.6-1.3)
[2025-05-26 06:26] LABS: UREA NITROGEN BLOOD 47 mg/dL (9-23)
[2025-05-26 06:28] LABS: PHOSPHORUS 3.6 mg/dL (2.5-4.9)
[2025-05-26 06:33] LABS: HEMATOCRIT. 34.1 % (42.0-52.0); HEMOGLOBIN. 10.8 g/dL (14.0-18.0); RED BLOOD CELL COUNT 4.84 mill/uL (4.7-6.1); RED CELL DISTRIBUTION WIDTH 20.4 % (11.6-14.6)
[2025-05-26 07:20] LABS: INR 1.5
[2025-05-26 08:17] LABS: MEAN PLATELET VOLUME 9.4 fl (7.4-10.4); PLATELET 65 x1000/uL (130-400)
[2025-05-26] MEDS ORDERED: HEPARIN 1000 UNITS/ML 10ML ONE (10:02)
[2025-05-26] MEDS ORDERED: LIDOCAINE HCL 1% 20ML VIAL ONE (10:02)
[2025-05-26] MEDS: POTASSIUM CHLORIDE 20MEQ/PACKET PO SCH (11:08)
[2025-05-26] MEDS: KCL 20MEQ/100ML PREMIX 100 ML IV SCH (11:10)
[2025-05-26] MEDS: BUDESONIDE 0.5MG/2ML NEB HHN SCH (11:35)
[2025-05-26 13:59] LABS: LYMPHOCYTES % MANUAL 9.0 % (20.0-50.0); MONOCYTES % MANUAL 15.0 % (2.0-8.0); NEUTROPHILS % MANUAL 76.0 % (45.0-75.0); NUCLEATED RED BLOOD CELLS 12 /100 WBC
[2025-05-26] MEDS: POTASSIUM CHLORIDE 20MEQ TABLET SR PO SCH (14:00)
[2025-05-26 14:01] LABS: PLATELET ESTIMATE DECREASED
[2025-05-26] MEDS: HYDROCODONE/ACETAMINOPHEN 5/325MG TABLET PO SCH (14:01)
[2025-05-26] MEDS: VANCOMYCIN 750MG PREMIX 150 ML IV SCH (21:08)
[2025-05-27] VITALS (15 sets, daily range): BP systolic 99–145; BP diastolic 80–129; PULSE 90–97; RESP 9–40; TEMP 36.4–36.6; O2SAT 87–100
[2025-05-27 17:22] LABS: BG BASE EXCESS -5.3 mmol/L (-2.0-3.0); BG CARBOXYHEMOGLOBIN 2.3 % (0.5-1.5); BG DEOXYHEMOGLOBIN 3.8 % (0.0-5.0); BG FLOW(L/min) 20.00 L/min; BG FRACTION INSPIRED OXYGEN 80; BG HCO3 ACT 18.5 mmol/L (21.0-28.0); BG METHEMOGLOBIN 0.4 % (0.5-1.5); BG OXYGEN SATURATION 96.1 % (94.0-98.0); BG OXYHEMOGLOBIN 93.5 % (94.0-98.0); BG PCO2 30.7 mmHg (35.0-48.0); BG PH 7.398 (7.350-7.450); BG PO2 76.9 mmHg (83.0-108.0); BG SAMPLE SITE RIGHT RADIAL; BG TOTAL HEMOGLOBIN 12.3 g/dL (13.5-17.5); BG VENT MODE HIGH FLOW
[2025-05-27] MEDS ORDERED: IPRATROPIUM/ALBUTEROL 0.5-3(2.5)MG/3ML NEB HHN PRN (17:45)
[2025-05-27] MEDS: IPRATROPIUM/ALBUTEROL 0.5-3(2.5)MG/3ML NEB HHN SCH (18:02)
[2025-05-28] VITALS (24 sets, daily range): BP systolic 102–123; BP diastolic 63–94; PULSE 80–109; RESP 10–32; TEMP 36.3–36.8; O2SAT 83–100
[2025-05-28 07:20] LABS: CREATININE 3.7 mg/dL (0.6-1.3); UREA NITROGEN BLOOD 43.0 mg/dL (9-23)
[2025-05-28 07:27] LABS: HEMATOCRIT. 35.6 % (42.0-52.0); HEMOGLOBIN. 10.9 g/dL (14.0-18.0); RED BLOOD CELL COUNT 4.97 mill/uL (4.7-6.1); RED CELL DISTRIBUTION WIDTH 20.7 % (11.6-14.6)
[2025-05-28 08:39] LABS: EOSINOPHILS % MANUAL 1.0 % (0.0-5.0); LYMPHOCYTES % MANUAL 30.0 % (20.0-50.0); MONOCYTES % MANUAL 12.0 % (2.0-8.0); NEUTROPHILS % MANUAL 57.0 % (45.0-75.0); NUCLEATED RED BLOOD CELLS 8 /100 WBC
[2025-05-28 08:40] LABS: PLATELET ESTIMATE DECREASED
[2025-05-28 08:41] LABS: PLATELET 65 x1000/uL (130-400)
[2025-05-28] MEDS ORDERED: VANCOMYCIN 500 MG in DEXT 5% WATER 100 ML IV SCH (18:00)
[2025-05-28] MEDS: MEROPENEM 1G/100ML 100 ML IV SCH (22:29)
[2025-05-29] VITALS (16 sets, daily range): BP systolic 99–119; BP diastolic 61–94; PULSE 89–104; RESP 13–45; TEMP 36.2–36.6; O2SAT 71–100
[2025-05-29] MEDS: ZOLPIDEM TARTRATE 5MG TABLET PO PRN (03:29)
[2025-05-29 15:19] LABS: BG BASE EXCESS -5.2 mmol/L (-2.0-3.0); BG CARBOXYHEMOGLOBIN 1.6 % (0.5-1.5); BG DEOXYHEMOGLOBIN 10.5 % (0.0-5.0); BG FRACTION INSPIRED OXYGEN 21; BG HCO3 ACT 16.7 mmol/L (21.0-28.0); BG METHEMOGLOBIN 0.3 % (0.5-1.5); BG OXYGEN SATURATION 89.3 % (94.0-98.0); BG OXYHEMOGLOBIN 87.6 % (94.0-98.0); BG PCO2 23.1 mmHg (35.0-48.0); BG PH 7.476 (7.350-7.450); BG PO2 53.1 mmHg (83.0-108.0); BG SAMPLE SITE RIGHT BRACHIAL; BG TOTAL HEMOGLOBIN 11.9 g/dL (13.5-17.5); BG VENT MODE ROOM AIR
[2025-05-29] MEDS: APIXABAN 5 MG TABLET PO SCH (20:46)
[2025-05-30] VITALS (22 sets, daily range): BP systolic 88–167; BP diastolic 44–92; PULSE 94–117; RESP 15–30; TEMP 36.3–36.9; O2SAT 91–100
[2025-05-30 06:50] LABS: CREATININE 4.1 mg/dL (0.6-1.3); UREA NITROGEN BLOOD 41.0 mg/dL (9-23)
[2025-05-30] MEDS: SODIUM ZIRCONIUM CYCLOSILICATE 10GM/PACKET PO SCH (09:07)
[2025-05-30 12:22] LABS: HEMATOCRIT. 34.3 % (42.0-52.0); HEMOGLOBIN. 10.5 g/dL (14.0-18.0); RED BLOOD CELL COUNT 4.69 mill/uL (4.7-6.1); RED CELL DISTRIBUTION WIDTH 21.9 % (11.6-14.6)
[2025-05-30 13:27] LABS: PLATELET 67 x1000/uL (130-400)
[2025-05-30 13:29] LABS: BAND% 2.0 % (1.0-6.0); LYMPHOCYTES % MANUAL 4.0 % (20.0-50.0); MONOCYTES % MANUAL 10.0 % (2.0-8.0); NEUTROPHILS % MANUAL 84.0 % (45.0-75.0); NUCLEATED RED BLOOD CELLS 2 /100 WBC
[2025-05-30 13:30] LABS: PLATELET ESTIMATE MARKEDLY DECREASED
[2025-05-30] MEDS: ALBUMIN HUMAN 25GM/100ML (25%) IV NR (17:32)
[2025-05-30] MEDS: MEROPENEM 500MG/50ML 50 ML IV SCH (21:32)
[2025-05-30] MEDS: VANCOMYCIN 750MG/150ML (BAXTER) IV SCH (21:32)
[2025-05-30 23:04] LABS: PHOSPHORUS 3.2 mg/dL (2.5-4.9)
[2025-05-31] VITALS (20 sets, daily range): BP systolic 90–106; BP diastolic 70–82; PULSE 91–99; RESP 12–29; TEMP 36.22512–36.7; O2SAT 96–100
[2025-05-31 07:26] LABS: CREATININE 4.1 mg/dL (0.6-1.3); UREA NITROGEN BLOOD 37.0 mg/dL (9-23)
[2025-05-31 07:42] LABS: HEMATOCRIT. 31.6 % (42.0-52.0); HEMOGLOBIN. 10.0 g/dL (14.0-18.0); RED BLOOD CELL COUNT 4.40 mill/uL (4.7-6.1); RED CELL DISTRIBUTION WIDTH 20.9 % (11.6-14.6)
[2025-05-31 11:16] LABS: BAND% 10.0 % (1.0-6.0); LYMPHOCYTES % MANUAL 2.0 % (20.0-50.0); MONOCYTES % MANUAL 9.0 % (2.0-8.0); NEUTROPHILS % MANUAL 79.0 % (45.0-75.0); NUCLEATED RED BLOOD CELLS 4 /100 WBC
[2025-05-31 11:21] LABS: MEAN PLATELET VOLUME 10.0 fl (7.4-10.4); PLATELET ESTIMATE DECREASED
[2025-05-31 11:22] LABS: PLATELET 59 x1000/uL (130-400)
[2025-06-01] VITALS (24 sets, daily range): BP systolic 89–111; BP diastolic 69–91; PULSE 90–107; RESP 11–29; TEMP 36.2–36.7; O2SAT 94–100
[2025-06-01 06:42] LABS: CREATININE 4.1 mg/dL (0.6-1.3); UREA NITROGEN BLOOD 35.0 mg/dL (9-23)
[2025-06-01 06:56] LABS: HEMATOCRIT. 31.9 % (42.0-52.0); HEMOGLOBIN. 10.2 g/dL (14.0-18.0); RED BLOOD CELL COUNT 4.41 mill/uL (4.7-6.1); RED CELL DISTRIBUTION WIDTH 21.5 % (11.6-14.6)
[2025-06-01 09:06] LABS: PLATELET 65 x1000/uL (130-400)
[2025-06-01 09:08] LABS: BAND% 5.0 % (1.0-6.0); LYMPHOCYTES % MANUAL 6.0 % (20.0-50.0); MONOCYTES % MANUAL 13.0 % (2.0-8.0); NEUTROPHILS % MANUAL 76.0 % (45.0-75.0); NUCLEATED RED BLOOD CELLS 5 /100 WBC; PLATELET ESTIMATE DECREASED
[2025-06-01] MEDS: VANCOMYCIN 500 MG in DEXT 5% WATER 100 ML IV SCH (10:03)
[2025-06-01 13:36] LABS: BG BASE EXCESS -3.0 mmol/L (-2.0-3.0); BG CARBOXYHEMOGLOBIN 2.4 % (0.5-1.5); BG DEOXYHEMOGLOBIN 2.1 % (0.0-5.0); BG FLOW(L/min) 2.00 L/min; BG FRACTION INSPIRED OXYGEN 28; BG HCO3 ACT 21.5 mmol/L (21.0-28.0); BG METHEMOGLOBIN 0.4 % (0.5-1.5); BG OXYGEN SATURATION 97.8 % (94.0-98.0); BG OXYHEMOGLOBIN 95.1 % (94.0-98.0); BG PCO2 36.7 mmHg (35.0-48.0); BG PH 7.386 (7.350-7.450); BG PO2 94.7 mmHg (83.0-108.0); BG SAMPLE SITE RIGHT BRACHIAL; BG TOTAL HEMOGLOBIN 11.3 g/dL (13.5-17.5); BG VENT MODE NASAL CANNULA
[2025-06-02] VITALS (13 sets, daily range): BP systolic 97–114; BP diastolic 74–93; PULSE 86–110; RESP 8–33; TEMP 36.2–36.9; O2SAT 92–100
[2025-06-03] VITALS (18 sets, daily range): BP systolic 57–134; BP diastolic 45–98; PULSE 81–100; RESP 13–42; TEMP 36.50292–36.7; O2SAT 92–100
[2025-06-03] MEDS: ALBUMIN HUMAN 12.5GM/50ML (25%) IV SCH (11:59)
[2025-06-03 19:04] LABS: PLATELET 52 x1000/uL (130-400); RED BLOOD CELL COUNT 4.30 mill/uL (4.7-6.1); RED CELL DISTRIBUTION WIDTH 21.7 % (11.6-14.6)
[2025-06-03 19:25] LABS: CREATININE 3.9 mg/dL (0.6-1.3); UREA NITROGEN BLOOD 28.0 mg/dL (9-23)
[2025-06-03] MEDS: VANCOMYCIN 750MG PREMIX 150 ML IV SCH (20:12)
[2025-06-04] VITALS (7 sets, daily range): BP systolic 97–120; BP diastolic 59–88; PULSE 94; RESP 24; TEMP 36.1–36.5
[2025-06-04] MEDS: PHENYLEPHRINE HCL 0.5% 15ML NASAL SPRAY BOTHNSTRLS PRN (12:24)
[2025-06-04 17:05] LABS: HEMATOCRIT. 35.8 % (42.0-52.0); HEMOGLOBIN. 11.0 g/dL (14.0-18.0); MEAN PLATELET VOLUME 10.4 fl (7.4-10.4); PLATELET 67 x1000/uL (130-400); RED BLOOD CELL COUNT 4.72 mill/uL (4.7-6.1); RED CELL DISTRIBUTION WIDTH 26.6 % (11.6-14.6)
[2025-06-04 17:17] LABS: CREATININE 4.8 mg/dL (0.6-1.3)
[2025-06-04 17:18] LABS: UREA NITROGEN BLOOD 28.0 mg/dL (9-23)
[2025-06-04 18:01] LABS: EOSINOPHILS % MANUAL 1.0 % (0.0-5.0); LYMPHOCYTES % MANUAL 18.0 % (20.0-50.0); MONOCYTES % MANUAL 6.0 % (2.0-8.0); NEUTROPHILS % MANUAL 75.0 % (45.0-75.0); PLATELET ESTIMATE DECREASED
[2025-06-05] VITALS (15 sets, daily range): BP systolic 97–128; BP diastolic 52–82; PULSE 67–94; RESP 14–18; TEMP 35.9–36.6; O2SAT 90–99
[2025-06-05 12:45] LABS: BASOPHILS % 0.6 % (0.0-2.0); EOSINOPHILS % 0.1 % (0.0-5.0); HEMATOCRIT. 32.1 % (42.0-52.0); HEMOGLOBIN. 10.3 g/dL (14.0-18.0); LYMPHOCYTES % 8.6 % (20.0-50.0); MONOCYTES % 7.1 % (2.0-8.0); NEUTROPHILS % 83.6 % (40.0-76.0); RED BLOOD CELL COUNT 4.40 mill/uL (4.7-6.1); RED CELL DISTRIBUTION WIDTH 25.9 % (11.6-14.6)
[2025-06-05 13:08] LABS: UREA NITROGEN BLOOD 41.0 mg/dL (9-23)
[2025-06-05 13:17] LABS: CREATININE 5.1 mg/dL (0.6-1.3)
[2025-06-05 13:35] LABS: PLATELET 73 x1000/uL (130-400)
[2025-06-05] MEDS: VANCOMYCIN 750MG PREMIX 150 ML IV SCH (17:26)
[2025-06-06] VITALS: BP 98/74; PULSE 86; RESP 17; TEMP 36.2; O2SAT 95
[2025-06-06 04:00] VITALS: BP 109/79; PULSE 88; RESP 17; TEMP 35.9; O2SAT 95
[2025-06-06 07:42] LABS: CREATININE 4.7 mg/dL (0.6-1.3)
[2025-06-06 07:43] LABS: UREA NITROGEN BLOOD 35.0 mg/dL (9-23)
[2025-06-06 07:49] LABS: BASOPHILS % 0.5 % (0.0-2.0); EOSINOPHILS % 0.3 % (0.0-5.0); HEMATOCRIT. 34.8 % (42.0-52.0); HEMOGLOBIN. 10.8 g/dL (14.0-18.0); LYMPHOCYTES % 12.7 % (20.0-50.0); MONOCYTES % 7.6 % (2.0-8.0); NEUTROPHILS % 78.9 % (40.0-76.0); RED BLOOD CELL COUNT 4.66 mill/uL (4.7-6.1); RED CELL DISTRIBUTION WIDTH 29.6 % (11.6-14.6)
[2025-06-06 08:00] VITALS: BP 106/73; PULSE 107; RESP 20; TEMP 34.8; O2SAT 94
[2025-06-06 10:46] LABS: ADD RBC MORPHOLOGY YES; MEAN PLATELET VOLUME 10.3 fl (7.4-10.4); PLATELET 67 x1000/uL (130-400)
[2025-06-06 10:47] LABS: PLATELET ESTIMATE MARKEDLY DECREASED
[2025-06-06 12:00] VITALS: BP 116/79; PULSE 85; RESP 20; TEMP 36; O2SAT 100
[2025-06-06 16:00] VITALS: BP 123/83; PULSE 86; RESP 20; TEMP 36.3; O2SAT 95
[2025-06-07] VITALS (12 sets, daily range): BP systolic 97–129; BP diastolic 47–85; PULSE 69–92; RESP 14–20; TEMP 34.8–36.28068; O2SAT 93–100
[2025-06-07 10:18] LABS: UREA NITROGEN BLOOD 46.0 mg/dL (9-23)
[2025-06-07 10:54] LABS: CREATININE 5.6 mg/dL (0.6-1.3)
[2025-06-08] VITALS (15 sets, daily range): BP systolic 90–110; BP diastolic 55–82; PULSE 60–91; RESP 14–22; TEMP 35.2–36.7; O2SAT 92–100
[2025-06-08 07:59] LABS: BASOPHILS % 0.8 % (0.0-2.0); EOSINOPHILS % 0.8 % (0.0-5.0); HEMATOCRIT. 33.4 % (42.0-52.0); HEMOGLOBIN. 10.5 g/dL (14.0-18.0); LYMPHOCYTES % 15.4 % (20.0-50.0); MONOCYTES % 9.1 % (2.0-8.0); NEUTROPHILS % 73.9 % (40.0-76.0); RED BLOOD CELL COUNT 4.37 mill/uL (4.7-6.1); RED CELL DISTRIBUTION WIDTH 30.0 % (11.6-14.6)
[2025-06-08 08:13] LABS: CREATININE 4.6 mg/dL (0.6-1.3); UREA NITROGEN BLOOD 33.0 mg/dL (9-23)
[2025-06-08 09:59] LABS: MEAN PLATELET VOLUME 10.0 fl (7.4-10.4); PLATELET 88 x1000/uL (130-400)
[2025-06-08] MEDS: VANCOMYCIN 750MG/150ML (BAXTER) IV SCH (18:44)
[2025-06-09] VITALS (10 sets, daily range): BP systolic 99–167; BP diastolic 54–83; PULSE 70–93; RESP 16–20; TEMP 36.1–36.7; O2SAT 98–100
[2025-06-09] MEDS: ALBUMIN HUMAN 12.5GM/50ML (25%) IV SCH (06:47)
[2025-06-09 10:50] LABS: HEMATOCRIT. 33.4 % (42.0-52.0); HEMOGLOBIN. 10.3 g/dL (14.0-18.0); RED BLOOD CELL COUNT 4.37 mill/uL (4.7-6.1); RED CELL DISTRIBUTION WIDTH 31.0 % (11.6-14.6)
[2025-06-09 11:03] LABS: ADD RBC MORPHOLOGY NO
[2025-06-09 11:18] LABS: CREATININE 4.8 mg/dL (0.6-1.3); UREA NITROGEN BLOOD 35.0 mg/dL (9-23)
[2025-06-09 15:13] LABS: BG BASE EXCESS -4.5 mmol/L (-2.0-3.0); BG CARBOXYHEMOGLOBIN 2.1 % (0.5-1.5); BG DEOXYHEMOGLOBIN 1.7 % (0.0-5.0); BG FRACTION INSPIRED OXYGEN 24; BG HCO3 ACT 17.3 mmol/L (21.0-28.0); BG METHEMOGLOBIN 0.2 % (0.5-1.5); BG OXYGEN SATURATION 98.3 % (94.0-98.0); BG OXYHEMOGLOBIN 96.0 % (94.0-98.0); BG PCO2 23.1 mmHg (35.0-48.0); BG PH 7.492 (7.350-7.450); BG PO2 91.7 mmHg (83.0-108.0); BG SAMPLE SITE RIGHT BRACHIAL; BG TOTAL HEMOGLOBIN 11.2 g/dL (13.5-17.5); BG VENT MODE NASAL CANNULA
[2025-06-09 15:46] LABS: MEAN PLATELET VOLUME 9.9 fl (7.4-10.4); PLATELET 80 x1000/uL (130-400)
[2025-06-09 15:53] LABS: BAND% 2.0 % (1.0-6.0); LYMPHOCYTES % MANUAL 11.0 % (20.0-50.0); METAMYELOCYTES % 1.0 % (0-0); MONOCYTES % MANUAL 3.0 % (2.0-8.0); NEUTROPHILS % MANUAL 83.0 % (45.0-75.0); NUCLEATED RED BLOOD CELLS 11 /100 WBC; PLATELET ESTIMATE DECREASED
[2025-06-10] VITALS (7 sets, daily range): BP systolic 95–117; BP diastolic 63–76; PULSE 69–89; RESP 18–23; TEMP 36.2–37.4; O2SAT 95–99
[2025-06-10] MEDS: ZOLPIDEM TARTRATE 5MG TABLET PO PRN (01:38)
[2025-06-10 12:20] LABS: BG BASE EXCESS -1.2 mmol/L (-2.0-3.0); BG CARBOXYHEMOGLOBIN 2.8 % (0.5-1.5); BG DEOXYHEMOGLOBIN 5.3 % (0.0-5.0); BG FRACTION INSPIRED OXYGEN 21; BG HCO3 ACT 22.3 mmol/L (21.0-28.0); BG METHEMOGLOBIN 0.4 % (0.5-1.5); BG OXYGEN SATURATION 94.5 % (94.0-98.0); BG OXYHEMOGLOBIN 91.5 % (94.0-98.0); BG PCO2 33.0 mmHg (35.0-48.0); BG PH 7.448 (7.350-7.450); BG PO2 71.4 mmHg (83.0-108.0); BG SAMPLE SITE RIGHT BRACHIAL; BG TOTAL HEMOGLOBIN 10.5 g/dL (13.5-17.5); BG VENT MODE ROOM AIR
[2025-06-10] MEDS: VANCOMYCIN 500 MG in DEXT 5% WATER 100 ML IV SCH (17:15)
[2025-06-11] VITALS (11 sets, daily range): BP systolic 70–108; BP diastolic 56–78; PULSE 86–94; RESP 16–20; TEMP 36.1–36.55848; O2SAT 95–100
[2025-06-11] MEDS: VANCOMYCIN 500 MG in DEXT 5% WATER 100 ML IV SCH (21:00)
[2025-06-12] VITALS (12 sets, daily range): BP systolic 90–117; BP diastolic 54–80; PULSE 78–95; RESP 17–20; TEMP 35.7–36.6696; O2SAT 95–97
[2025-06-12 08:30] LABS: HEMATOCRIT. 32.8 % (42.0-52.0); HEMOGLOBIN. 10.3 g/dL (14.0-18.0); RED BLOOD CELL COUNT 4.25 mill/uL (4.7-6.1); RED CELL DISTRIBUTION WIDTH 31.0 % (11.6-14.6)
[2025-06-12 08:41] LABS: CREATININE 3.4 mg/dL (0.6-1.3)
[2025-06-12 08:42] LABS: UREA NITROGEN BLOOD 19.0 mg/dL (9-23)
[2025-06-12 08:53] LABS: BAND% 2.0 % (1.0-6.0); EOSINOPHILS % MANUAL 1.0 % (0.0-5.0); LYMPHOCYTES % MANUAL 7.0 % (20.0-50.0); MONOCYTES % MANUAL 8.0 % (2.0-8.0); NEUTROPHILS % MANUAL 82.0 % (45.0-75.0); NUCLEATED RED BLOOD CELLS 5 /100 WBC
[2025-06-12 08:55] LABS: PLATELET ESTIMATE DECREASED
[2025-06-12 08:56] LABS: MEAN PLATELET VOLUME 9.5 fl (7.4-10.4); PLATELET 76 x1000/uL (130-400)
[2025-06-12] MEDS ORDERED: AMI2 PO (12:07)
[2025-06-12] MEDS ORDERED: ALBU90AE INH (12:07)
[2025-06-12] MEDS ORDERED: FLUT1DIS3 INH (12:07)
[2025-06-12] MEDS ORDERED: APIX5TAB PO (12:07)
[2025-06-12] MEDS ORDERED: MIDO5TAB4 PO (12:07)
== END 2025-06-12 17:15 | disposition home or self-care (01) | DRG 208 ==
LOC: ER 10:13 → 6WST 15:07 → EDBEDREQTM 15:12 → EDBEDREQ 15:12 → 5EST 05-14 15:00 → CVICU 05-14 16:11 → 5EST 05-20 08:05 → 6EST 06-05 02:45
PROVIDERS: ADMIT Internal Medicine; ATTEND Internal Medicine
PROC: 5A09357 Assistance with Respiratory Ventilation, Less than 24 Consecutive Hours, Continuous Positive Airway Pressure (ICD-10-PCS; 2025-05-14)
PROC: 0BH17EZ Insertion of Endotracheal Airway into Trachea, Via Natural or Artificial Opening (ICD-10-PCS; 2025-05-14)
PROC: 5A1945Z Respiratory Ventilation, 24-96 Consecutive Hours (ICD-10-PCS; 2025-05-14)
PROC: 30233R1 Transfusion of Nonautologous Platelets into Peripheral Vein, Percutaneous Approach (ICD-10-PCS; principal; 2025-05-15)
PROC: 02HV33Z Insertion of Infusion Device into Superior Vena Cava, Percutaneous Approach (ICD-10-PCS; 2025-05-15)
PROC: B548ZZA Ultrasonography of Superior Vena Cava, Guidance (ICD-10-PCS; 2025-05-15)
PROC: 5A1D70Z Performance of Urinary Filtration, Intermittent, Less than 6 Hours Per Day (ICD-10-PCS; 2025-05-15)
PROC: 5A09357 Assistance with Respiratory Ventilation, Less than 24 Consecutive Hours, Continuous Positive Airway Pressure (ICD-10-PCS; 2025-05-16)
PROC: 5A09357 Assistance with Respiratory Ventilation, Less than 24 Consecutive Hours, Continuous Positive Airway Pressure (ICD-10-PCS; 2025-05-17)
PROC: 5A1D70Z Performance of Urinary Filtration, Intermittent, Less than 6 Hours Per Day (ICD-10-PCS; 2025-05-19)
PROC: 5A09357 Assistance with Respiratory Ventilation, Less than 24 Consecutive Hours, Continuous Positive Airway Pressure (ICD-10-PCS; 2025-05-21)
PROC: 5A0935A Assistance with Respiratory Ventilation, Less than 24 Consecutive Hours, High Flow/Velocity Cannula (ICD-10-PCS; 2025-05-21)
PROC: 5A0945A Assistance with Respiratory Ventilation, 24-96 Consecutive Hours, High Flow/Velocity Cannula (ICD-10-PCS; 2025-05-22)
PROC: 5A1D70Z Performance of Urinary Filtration, Intermittent, Less than 6 Hours Per Day (ICD-10-PCS; 2025-05-22)
PROC: 5A1D70Z Performance of Urinary Filtration, Intermittent, Less than 6 Hours Per Day (ICD-10-PCS; 2025-05-24)
PROC: 02PY33Z Removal of Infusion Device from Great Vessel, Percutaneous Approach (ICD-10-PCS; 2025-05-26)
PROC: 02HV33Z Insertion of Infusion Device into Superior Vena Cava, Percutaneous Approach (ICD-10-PCS; 2025-05-26)
PROC: 0JH63XZ Insertion of Tunneled Vascular Access Device into Chest Subcutaneous Tissue and Fascia, Percutaneous Approach (ICD-10-PCS; 2025-05-26)
PROC: B5181ZA Fluoroscopy of Superior Vena Cava using Low Osmolar Contrast, Guidance (ICD-10-PCS; 2025-05-26)
PROC: 5A0945A Assistance with Respiratory Ventilation, 24-96 Consecutive Hours, High Flow/Velocity Cannula (ICD-10-PCS; 2025-05-26)
PROC: 5A1D70Z Performance of Urinary Filtration, Intermittent, Less than 6 Hours Per Day (ICD-10-PCS; 2025-05-26)
PROC: 5A1D70Z Performance of Urinary Filtration, Intermittent, Less than 6 Hours Per Day (ICD-10-PCS; 2025-05-28)
PROC: 5A1D70Z Performance of Urinary Filtration, Intermittent, Less than 6 Hours Per Day (ICD-10-PCS; 2025-05-30)
PROC: 5A1D70Z Performance of Urinary Filtration, Intermittent, Less than 6 Hours Per Day (ICD-10-PCS; 2025-05-31)
PROC: 5A1D70Z Performance of Urinary Filtration, Intermittent, Less than 6 Hours Per Day (ICD-10-PCS; 2025-06-01)
PROC: 5A1D70Z Performance of Urinary Filtration, Intermittent, Less than 6 Hours Per Day (ICD-10-PCS; 2025-06-03)
PROC: 5A1D70Z Performance of Urinary Filtration, Intermittent, Less than 6 Hours Per Day (ICD-10-PCS; 2025-06-05)
PROC: 5A1D70Z Performance of Urinary Filtration, Intermittent, Less than 6 Hours Per Day (ICD-10-PCS; 2025-06-07)
PROC: 5A1D70Z Performance of Urinary Filtration, Intermittent, Less than 6 Hours Per Day (ICD-10-PCS; 2025-06-08)
PROC: 5A1D70Z Performance of Urinary Filtration, Intermittent, Less than 6 Hours Per Day (ICD-10-PCS; 2025-06-09)
PROC: 5A1D70Z Performance of Urinary Filtration, Intermittent, Less than 6 Hours Per Day (ICD-10-PCS; 2025-06-11)
PROC: 5A1D70Z Performance of Urinary Filtration, Intermittent, Less than 6 Hours Per Day (ICD-10-PCS; 2025-06-12)
DX: J96.01 Acute respiratory failure with hypoxia (principal); N17.0 Acute kidney failure with tubular necrosis; A41.9 Sepsis, unspecified organism; G93.41 Metabolic encephalopathy; I50.23 Acute on chronic systolic (congestive) heart failure; R65.21 Severe sepsis with septic shock; R57.8 Other shock; I26.99 Other pulmonary embolism without acute cor pulmonale; J44.1 Chronic obstructive pulmonary disease with (acute) exacerbation; I48.92 Unspecified atrial flutter; E87.20 Acidosis, unspecified; E87.1 Hypo-osmolality and hyponatremia; Z20.822 Contact with and (suspected) exposure to COVID-19; F17.210 Nicotine dependence, cigarettes, uncomplicated; I11.0 Hypertensive heart disease with heart failure; D50.9 Iron deficiency anemia, unspecified; I48.91 Unspecified atrial fibrillation; E88.09 Other disorders of plasma-protein metabolism, not elsewhere classified; E87.5 Hyperkalemia; I27.20 Pulmonary hypertension, unspecified; D69.6 Thrombocytopenia, unspecified; F41.9 Anxiety disorder, unspecified; F14.10 Cocaine abuse, uncomplicated; E16.2 Hypoglycemia, unspecified; E78.00 Pure hypercholesterolemia, unspecified; G89.29 Other chronic pain; Z99.81 Dependence on supplemental oxygen; Z71.6 Tobacco abuse counseling
CPT/HCPCS: 31500; 31720; 36415; 36556; 36558; 36600; 71045; 76604; 76870; 77001; 78580; 80048; 80051; 80053; 80076; 80202; 80305; 82310; 82375; 82805; 82962; 83605; 83735; 83880; 84100; 84132; 84145; 84478; 84484; 85025; 85027; 85379; 86705; 86709; 86850; 86900; 87070; 87340; 87426; 90935; 92610; 93005; 93306; 93970; 93976; 94002; 94003; 94070; 94640; 94660; 94664; 97110; 97116; 97162; 97530; 97542; 98960; 99285; A4606; C1750; C1752; C1769; J0282; J0461; J0612; J0692; J0696; J1644; J1650; J1815; J1938; J2003; J2185; J2405; J2470; J2704; J2919; J3010; J3373; J3480; J3490; J7042; J7060; J7626; P9034; P9047

== ENCOUNTER 2025-07-17 12:41 | Inpatient (IN) | payer MEDICARE, MEDICAID ==
[2025-07-17] VITALS (7 sets, daily range): BP systolic 103–104; BP diastolic 76–77; PULSE 61–87; RESP 17–32; TEMP 36.7–36.8072; O2SAT 95–99
[~2025-07-17] VITALS: Ht 165.1 cm; Wt 65.3 kg
[~2025-07-17 12:41] MED LIST changes: +AMI2 PO; +APIX5TAB PO; -ASPI-1160 PO; -LOSA-412 PO; +MIDO5TAB4 PO; +P20 MT; +PANT40TA51 PO; -SPIR25TA6 MT; +SUCR1TAB PO
[2025-07-17] MEDS: SODIUM CHLORIDE 0.9% (SEPSIS BOLUS) IV ONE (13:43)
[2025-07-17] MEDS: CEFTRIAXONE 1GM/50ML 50 ML IV ONE (13:51)
[2025-07-17 14:10] LABS: CREATININE 4.7 mg/dL (0.6-1.3); HEMATOCRIT. 27.4 % (42.0-52.0); HEMOGLOBIN. 8.4 g/dL (14.0-18.0); MEAN PLATELET VOLUME 10.9 fl (7.4-10.4); PLATELET 90 x1000/uL (130-400); RED BLOOD CELL COUNT 3.23 mill/uL (4.7-6.1); RED CELL DISTRIBUTION WIDTH 20.0 % (11.6-14.6); UREA NITROGEN BLOOD 66 mg/dL (9-23)
[2025-07-17 14:12] LABS: ASPARTATE AMINOTRANSFERASE 35 IU/L (<34); BILIRUBIN DIRECT 2.0 mg/dL (<=3.0); BILIRUBIN TOTAL 2.7 mg/dL (0.1-1.0); PROTEIN TOTAL 5.7 g/dL (6.0-8.3)
[2025-07-17 14:13] LABS: TROPONIN I HIGH SENSITIVITY 288 ng/L (3.0-53)
[2025-07-17] MEDS: AZITHROMYCIN 500MG/250ML 250 ML IV ONE (15:09)
[2025-07-17] MEDS ORDERED: SODIUM CHLORIDE 0.9% 1,000 ML IV SCH (15:30)
[2025-07-17] MEDS ORDERED: MAGNESIUM/ALUMINUM HYDROXIDE/SIMETHICONE 30ML UDC PO PRN (15:30)
[2025-07-17] MEDS ORDERED: ONDANSETRON HCL 4MG/2ML INJ IV PRN (15:30)
[2025-07-17] MEDS ORDERED: ENOXAPARIN 40MG/0.4ML SYR SUBCUT SCH (15:30)
[2025-07-17] MEDS: METHYLPREDNISOLONE SOD SUCC 40MG/ML (ACT-O-VIAL) IV SCH (15:44)
[2025-07-17] MEDS ORDERED: NALOXONE HCL 0.4MG/ML VIAL IV PRN (15:45)
[2025-07-17] MEDS: IPRATROPIUM/ALBUTEROL 0.5-3(2.5)MG/3ML NEB NEB SCH (16:06)
[2025-07-17 16:09] LABS: INR 1.3
[2025-07-17 16:25] LABS: TROPONIN I HIGH SENSITIVITY 317 ng/L (3.0-53)
[2025-07-17] MEDS: VANCOMYCIN 1.5GM/250ML 250 ML IV SCH (16:37)
[2025-07-17 17:11] LABS: INFLUENZA TYPE A Presumptive Negative (Pres. Neg.); INFLUENZA TYPE B Presumptive Negative (Pres. Neg.)
[2025-07-17 17:12] LABS: RESPIRATORY SYNCYTIAL VIRUS Not Detected (Not Detectd)
[2025-07-17 17:52] LABS: BAND% 17.0 % (1.0-6.0); LYMPHOCYTES % MANUAL 7.0 % (20.0-50.0); MONOCYTES % MANUAL 3.0 % (2.0-8.0); NEUTROPHILS % MANUAL 73.0 % (45.0-75.0); PLATELET ESTIMATE SLIGHTLY DECREASED
[2025-07-17] MEDS: EPOETIN ALFA-EPBX 4,000 UNITS/ML VIAL SUBCUT SCH (21:00)
[2025-07-17] MEDS: PIPERACILLIN/TAZO 3.375G/50ML 50 ML IV SCH (22:00)
[2025-07-18] VITALS (11 sets, daily range): BP systolic 108–147; BP diastolic 87–132; PULSE 83–89; RESP 18–36; TEMP 36.7–36.9
[2025-07-18 00:43] LABS: TROPONIN I HIGH SENSITIVITY 465 ng/L (3.0-53)
[2025-07-18 06:00] LABS: HEMATOCRIT. 26.0 % (42.0-52.0); HEMOGLOBIN. 8.3 g/dL (14.0-18.0); MEAN PLATELET VOLUME 11.1 fl (7.4-10.4); PLATELET 81 x1000/uL (130-400); RED BLOOD CELL COUNT 3.10 mill/uL (4.7-6.1); RED CELL DISTRIBUTION WIDTH 19.7 % (11.6-14.6)
[2025-07-18 06:19] LABS: UREA NITROGEN BLOOD 82.0 mg/dL (9-23)
[2025-07-18 06:21] LABS: PHOSPHORUS 4.9 mg/dL (2.5-4.9)
[2025-07-18 06:52] LABS: HEPATITIS C AB NON REACTIVE (Neg) (Negative)
[2025-07-18 07:46] LABS: CREATININE 5.2 mg/dL (0.6-1.3)
[2025-07-18 09:20] LABS: TROPONIN I HIGH SENSITIVITY 413 ng/L (3.0-53)
[2025-07-18] MEDS: PIPERACILLIN/TAZO 3.375G/50ML IV SCH (10:37)
[2025-07-18] MEDS: PANTOPRAZOLE SODIUM 40 MG/VIAL IV SCH (10:37)
[2025-07-18] MEDS: FOLIC ACID/VITAMIN B COMP W-C TABLET PO SCH (10:38)
[2025-07-18 14:53] LABS: BAND% 11.0 % (1.0-6.0); LYMPHOCYTES % MANUAL 4.0 % (20.0-50.0); MONOCYTES % MANUAL 3.0 % (2.0-8.0); NEUTROPHILS % MANUAL 82.0 % (45.0-75.0); PLATELET ESTIMATE DECREASED
[2025-07-18] MEDS: VANCOMYCIN 750MG PREMIX 150 ML IV SCH (20:58)
[2025-07-18] MEDS: METHYLPREDNISOLONE SOD SUCC 40MG/ML (ACT-O-VIAL) IV SCH (23:05)
[2025-07-19] VITALS (21 sets, daily range): BP systolic 96–130; BP diastolic 63–93; PULSE 81–94; RESP 13–26; TEMP 36.28068–36.9; O2SAT 89–98
[2025-07-19 05:47] LABS: UREA NITROGEN BLOOD 96.0 mg/dL (9-23)
[2025-07-19 06:24] LABS: HEMATOCRIT. 26.6 % (42.0-52.0); HEMOGLOBIN. 8.3 g/dL (14.0-18.0); MEAN PLATELET VOLUME 11.3 fl (7.4-10.4); PLATELET 87 x1000/uL (130-400); RED BLOOD CELL COUNT 3.11 mill/uL (4.7-6.1); RED CELL DISTRIBUTION WIDTH 19.8 % (11.6-14.6)
[2025-07-19 07:21] LABS: CREATININE 5.6 mg/dL (0.6-1.3)
[2025-07-19] MEDS: METHYLPREDNISOLONE SOD SUCC 40MG/ML (ACT-O-VIAL) IV SCH (09:09)
[2025-07-19] MEDS: VANCOMYCIN 750MG PREMIX 150 ML IV SCH (14:00)
[2025-07-19 14:42] LABS: BAND% 3.0 % (1.0-6.0); LYMPHOCYTES % MANUAL 5.0 % (20.0-50.0); MONOCYTES % MANUAL 1.0 % (2.0-8.0); NEUTROPHILS % MANUAL 91.0 % (45.0-75.0); PLATELET ESTIMATE DECREASED
[2025-07-20] VITALS (16 sets, daily range): BP systolic 100–124; BP diastolic 81–98; PULSE 83–98; RESP 9–28; TEMP 36.2–37.1; O2SAT 97–100
[2025-07-20] MEDS: ZOLPIDEM TARTRATE 5MG TABLET PO PRN (02:38)
[2025-07-20 07:37] LABS: HEMATOCRIT. 23.1 % (42.0-52.0); HEMOGLOBIN. 7.5 g/dL (14.0-18.0); MEAN PLATELET VOLUME 10.9 fl (7.4-10.4); PLATELET 83 x1000/uL (130-400); RED BLOOD CELL COUNT 2.77 mill/uL (4.7-6.1); RED CELL DISTRIBUTION WIDTH 19.7 % (11.6-14.6)
[2025-07-20 07:55] LABS: CREATININE 4.2 mg/dL (0.6-1.3); UREA NITROGEN BLOOD 73.0 mg/dL (9-23)
[2025-07-20 11:52] LABS: BAND% 3.0 % (1.0-6.0); LYMPHOCYTES % MANUAL 8.0 % (20.0-50.0); MONOCYTES % MANUAL 5.0 % (2.0-8.0); NEUTROPHILS % MANUAL 84.0 % (45.0-75.0); PLATELET ESTIMATE DECREASED
[2025-07-20] MEDS: VANCOMYCIN 750MG PREMIX 150 ML IV SCH (14:35)
[2025-07-20] MEDS: HYDROCODONE/ACETAMINOPHEN 5/325MG TABLET PO PRN (15:02)
[2025-07-21] VITALS (26 sets, daily range): BP systolic 112–127; BP diastolic 78–99; PULSE 80–96; RESP 14–30; TEMP 36.2–36.6; O2SAT 89–100
[2025-07-21 07:08] LABS: CREATININE 4.8 mg/dL (0.6-1.3); UREA NITROGEN BLOOD 73.0 mg/dL (9-23)
[2025-07-21 08:44] LABS: HEMATOCRIT. 22.6 % (42.0-52.0); HEMOGLOBIN. 7.3 g/dL (14.0-18.0); MEAN PLATELET VOLUME 10.2 fl (7.4-10.4); PLATELET 81 x1000/uL (130-400); RED BLOOD CELL COUNT 2.76 mill/uL (4.7-6.1); RED CELL DISTRIBUTION WIDTH 19.3 % (11.6-14.6)
[2025-07-21] MEDS: ACETAMINOPHEN 325MG TABLET PO PRN (09:12)
[2025-07-21 22:45] LABS: VITAMIN B12 SERUM 1281 pg/mL (211-911)
[2025-07-21 23:52] LABS: LYMPHOCYTES % MANUAL 7.0 % (20.0-50.0); MONOCYTES % MANUAL 10.0 % (2.0-8.0); NEUTROPHILS % MANUAL 83.0 % (45.0-75.0); PLATELET ESTIMATE DECREASED
[2025-07-22] VITALS (15 sets, daily range): BP systolic 115–121; BP diastolic 82–86; PULSE 80–99; RESP 12–37; TEMP 36.3–36.7; O2SAT 90–100
[2025-07-22] MEDS ORDERED: NON FORMULARY MED XX SCH (11:00)
[2025-07-22] MEDS ORDERED: VANCOMYCIN 125MG/2.5ML ORAL SYR PO SCH (13:00)
[2025-07-22] MEDS: VANCOMYCIN 125MG/2.5ML ORAL SYR PO SCH (13:37)
[2025-07-22] MEDS: IRON SUCROSE COMPLEX 100 MG/5 ML ML IV SCH (13:37)
[2025-07-22] MEDS: SUCRALFATE 1G TABLET PO SCH (13:37)
[2025-07-22] MEDS ORDERED: FERROUS SULFATE 325MG TABLET PO SCH (18:00)
[2025-07-23] VITALS (29 sets, daily range): BP systolic 114–155; BP diastolic 73–126; PULSE 85–101; RESP 10–36; TEMP 36.05844–36.6696; O2SAT 95–100
[2025-07-23] MEDS ORDERED: ASCO-494 PO (14:17)
[2025-07-23] MEDS ORDERED: FOLI0.8T53 PO (14:17)
[2025-07-23] MEDS ORDERED: EPOE40009 SUBCUT (14:17)
[2025-07-23] MEDS: ASCORBIC ACID 250 MG TABLET PO SCH (17:19)
[2025-07-23 20:01] LABS: HEMATOCRIT. 27.5 % (42.0-52.0); HEMOGLOBIN. 8.8 g/dL (14.0-18.0); MEAN PLATELET VOLUME 10.8 fl (7.4-10.4); PLATELET 85 x1000/uL (130-400); RED BLOOD CELL COUNT 3.31 mill/uL (4.7-6.1); RED CELL DISTRIBUTION WIDTH 21.1 % (11.6-14.6)
[2025-07-23 20:13] LABS: UREA NITROGEN BLOOD 27 mg/dL (9-23)
[2025-07-23 20:14] LABS: ASPARTATE AMINOTRANSFERASE 25 IU/L (<34)
[2025-07-23 20:15] LABS: BILIRUBIN DIRECT 2.2 mg/dL (<=3.0); BILIRUBIN TOTAL 3.0 mg/dL (0.1-1.0); PROTEIN TOTAL 6.7 g/dL (6.0-8.3)
[2025-07-23 20:26] LABS: FOLIC ACID (FOLATE) SERUM > 20.00 ng/mL (>5.38)
[2025-07-23 20:34] LABS: CREATININE 2.5 mg/dL (0.6-1.3)
[2025-07-24] VITALS (17 sets, daily range): BP systolic 88–136; BP diastolic 65–94; PULSE 84–100; RESP 9–32; TEMP 36.2–36.8; O2SAT 96–100
[2025-07-24 00:37] LABS: LYMPHOCYTES % MANUAL 3.0 % (20.0-50.0); MONOCYTES % MANUAL 2.0 % (2.0-8.0); NEUTROPHILS % MANUAL 95.0 % (45.0-75.0); PLATELET ESTIMATE DECREASED
[2025-07-24 11:54] LABS: HEMATOCRIT. 26.7 % (42.0-52.0); HEMOGLOBIN. 8.2 g/dL (14.0-18.0); MEAN PLATELET VOLUME 11.0 fl (7.4-10.4); PLATELET 79 x1000/uL (130-400); RED BLOOD CELL COUNT 3.10 mill/uL (4.7-6.1); RED CELL DISTRIBUTION WIDTH 21.4 % (11.6-14.6)
[2025-07-24 11:59] LABS: UREA NITROGEN BLOOD 40 mg/dL (9-23)
[2025-07-24 12:07] LABS: CREATININE 4.2 mg/dL (0.6-1.3)
[2025-07-24] MEDS: METHYLPREDNISOLONE SOD SUCC 40MG/ML (ACT-O-VIAL) IV SCH (18:22)
[2025-07-24 19:52] LABS: BAND% 1.0 % (1.0-6.0); LYMPHOCYTES % MANUAL 3.0 % (20.0-50.0); MONOCYTES % MANUAL 2.0 % (2.0-8.0); NEUTROPHILS % MANUAL 94.0 % (45.0-75.0); NUCLEATED RED BLOOD CELLS 4 /100 WBC; PLATELET ESTIMATE DECREASED
[2025-07-25] VITALS (27 sets, daily range): BP systolic 108–136; BP diastolic 66–118; PULSE 86–106; RESP 14–41; TEMP 36.1–36.6; O2SAT 69–98
[2025-07-25 10:10] LABS: ANTI-NUCLEAR ANTIBODIES DIRECT Negative (Negative)
[2025-07-25 17:47] LABS: HEMATOCRIT. 28.1 % (42.0-52.0); HEMOGLOBIN. 8.8 g/dL (14.0-18.0); MEAN PLATELET VOLUME 10.6 fl (7.4-10.4); PLATELET 82 x1000/uL (130-400); RED BLOOD CELL COUNT 3.37 mill/uL (4.7-6.1); RED CELL DISTRIBUTION WIDTH 21.6 % (11.6-14.6)
[2025-07-25 18:02] LABS: CREATININE 1.1 mg/dL (0.6-1.3)
[2025-07-25 18:03] LABS: UREA NITROGEN BLOOD 7 mg/dL (9-23)
[2025-07-25 18:28] LABS: LYMPHOCYTES % MANUAL 3.0 % (20.0-50.0); MONOCYTES % MANUAL 1.0 % (2.0-8.0); NEUTROPHILS % MANUAL 96.0 % (45.0-75.0); NUCLEATED RED BLOOD CELLS 11 /100 WBC; PLATELET ESTIMATE DECREASED
[2025-07-25] MEDS: CLONIDINE 0.1MG TABLET PO PRN (21:07)
[2025-07-26] VITALS (16 sets, daily range): BP systolic 104–135; BP diastolic 88–105; PULSE 78–97; RESP 10–29; TEMP 36.3–36.8; O2SAT 92–98
[2025-07-26] MEDS: POTASSIUM CHLORIDE 20MEQ TABLET SR PO SCH (06:55)
[2025-07-26 08:28] LABS: HEMATOCRIT. 26.6 % (42.0-52.0); HEMOGLOBIN. 8.3 g/dL (14.0-18.0); MEAN PLATELET VOLUME 11.4 fl (7.4-10.4); PLATELET 72 x1000/uL (130-400); RED BLOOD CELL COUNT 3.16 mill/uL (4.7-6.1); RED CELL DISTRIBUTION WIDTH 21.1 % (11.6-14.6)
[2025-07-26 08:39] LABS: UREA NITROGEN BLOOD 44.0 mg/dL (9-23)
[2025-07-26 08:54] LABS: CREATININE 4.2 mg/dL (0.6-1.3)
[2025-07-26 19:45] LABS: LYMPHOCYTES % MANUAL 2.0 % (20.0-50.0); MONOCYTES % MANUAL 2.0 % (2.0-8.0); NEUTROPHILS % MANUAL 96.0 % (45.0-75.0); NUCLEATED RED BLOOD CELLS 11 /100 WBC; PLATELET ESTIMATE DECREASED
[2025-07-27] VITALS (18 sets, daily range): BP systolic 84–124; BP diastolic 62–105; PULSE 82–104; RESP 15–36; TEMP 36.1–36.6; O2SAT 97–99
[2025-07-28] VITALS (52 sets, daily range): BP systolic 125–129; BP diastolic 93–98; PULSE 84–111; RESP 11–35; TEMP 36.3–37.2; O2SAT 94–99
[2025-07-28] MEDS: PREDNISONE 20MG TABLET PO SCH (08:45)
[2025-07-28] MEDS: METHYLPREDNISOLONE SOD SUCC 40MG/ML (ACT-O-VIAL) IV SCH (13:27)
[2025-07-29] VITALS (14 sets, daily range): BP systolic 109–137; BP diastolic 76–107; PULSE 86–99; RESP 13–29; TEMP 36.2–36.55848; O2SAT 68–98
[2025-07-29 05:13] LABS: CMV PCR QUALITATIVE Positive (Negative)
[2025-07-29] MEDS: FERROUS SULFATE 325MG TABLET PO SCH (10:11)
[2025-07-29] MEDS: VANCOMYCIN 125MG/2.5ML ORAL SYR PO SCH (18:37)
[2025-07-30] VITALS (19 sets, daily range): BP systolic 75–148; BP diastolic 62–128; PULSE 90–102; RESP 12–33; TEMP 36–36.4; O2SAT 61–96
== END 2025-07-30 19:40 | DRG 871 ==
LOC: ER 12:41 → 5EST 14:41 → EDBEDREQ 15:26
PROVIDERS: ADMIT Internal Medicine; ATTEND Internal Medicine
PROC: 5A09357 Assistance with Respiratory Ventilation, Less than 24 Consecutive Hours, Continuous Positive Airway Pressure (ICD-10-PCS; 2025-07-17)
PROC: 5A1D70Z Performance of Urinary Filtration, Intermittent, Less than 6 Hours Per Day (ICD-10-PCS; principal; 2025-07-19)
PROC: 5A1D70Z Performance of Urinary Filtration, Intermittent, Less than 6 Hours Per Day (ICD-10-PCS; 2025-07-21)
PROC: 5A1D70Z Performance of Urinary Filtration, Intermittent, Less than 6 Hours Per Day (ICD-10-PCS; 2025-07-23)
PROC: 5A1D70Z Performance of Urinary Filtration, Intermittent, Less than 6 Hours Per Day (ICD-10-PCS; 2025-07-25)
PROC: 5A1D70Z Performance of Urinary Filtration, Intermittent, Less than 6 Hours Per Day (ICD-10-PCS; 2025-07-27)
PROC: 5A1D70Z Performance of Urinary Filtration, Intermittent, Less than 6 Hours Per Day (ICD-10-PCS; 2025-07-29)
DX: A41.9 Sepsis, unspecified organism (principal); I21.4 Non-ST elevation (NSTEMI) myocardial infarction; N18.6 End stage renal disease; J96.21 Acute and chronic respiratory failure with hypoxia; L89.153 Pressure ulcer of sacral region, stage 3; I50.23 Acute on chronic systolic (congestive) heart failure; I13.2 Hypertensive heart and chronic kidney disease with heart failure and with stage 5 chronic kidney disease, or end stage renal disease; I27.20 Pulmonary hypertension, unspecified; D68.9 Coagulation defect, unspecified; T80.211A Bloodstream infection due to central venous catheter, initial encounter; A04.72 Enterocolitis due to Clostridium difficile, not specified as recurrent; Z99.2 Dependence on renal dialysis; D69.6 Thrombocytopenia, unspecified; Z79.01 Long term (current) use of anticoagulants; K76.0 Fatty (change of) liver, not elsewhere classified; D50.8 Other iron deficiency anemias; F14.10 Cocaine abuse, uncomplicated; I07.1 Rheumatic tricuspid insufficiency; J44.89 Other specified chronic obstructive pulmonary disease; E87.20 Acidosis, unspecified; I48.92 Unspecified atrial flutter; R18.8 Other ascites; Z20.822 Contact with and (suspected) exposure to COVID-19; D63.8 Anemia in other chronic diseases classified elsewhere; E88.09 Other disorders of plasma-protein metabolism, not elsewhere classified; I48.0 Paroxysmal atrial fibrillation; K74.60 Unspecified cirrhosis of liver; K57.30 Diverticulosis of large intestine without perforation or abscess without bleeding; N28.1 Cyst of kidney, acquired; F15.10 Other stimulant abuse, uncomplicated; E78.00 Pure hypercholesterolemia, unspecified; Y83.8 Other surgical procedures as the cause of abnormal reaction of the patient, or of later complication, without mention of misadventure at the time of the procedure; I86.1 Scrotal varices; Z86.711 Personal history of pulmonary embolism; Z79.899 Other long term (current) drug therapy; Z87.891 Personal history of nicotine dependence; Y92.89 Other specified places as the place of occurrence of the external cause
CPT/HCPCS: 36415; 71045; 76705; 80048; 80076; 82270; 82607; 82728; 82746; 83540; 83550; 83605; 83735; 83880; 84100; 84132; 84145; 84443; 84484; 85025; 85044; 86038; 86705; 86850; 86900; 87340; 87420; 87426; 87493; 87496; 87804; 90935; 93005; 93970; 94070; 94640; 94660; 94664; 97162; 99285; A4606; A4615; J0456; J0696; J0885; J2470; J2543; J2919; J3373; J7030; J7512